=== PATIENT | male | born 1945 | race Caucasian/White ===

== ENCOUNTER → 2016-11-06 | Outpatient (CLI) | payer OTHER ==
[~2016-11-06] MED LIST: ALLOPURINOL PO; AMLO-110 PO; BACL10TA PO; CHOL2000 PO; CITA20TA4 PO; CLOB-65 TOP; FLM4 PO; LISI-725 PO; MRLP17X PO; MULT60CA PO; NRN/300 PO; PANT1TAB3 PO; PSYL55.43 PO; RANI300T2 PO
--- NOTE | 2016-11-06 14:47 | DIAGNOSTIC IMAGING REPORT ---
LEFT SECOND TOE 3 VIEWS CLINICAL HISTORY: Left second toe pain COMPARISON: None. DISCUSSION: There is a 4 mm intra-articular chip/avulsion fracture arising from the dorsal base of distal phalanx. The fracture is distracted x 2.5 mm. IMPRESSION: 4 mm intra-articular chip/avulsion fracture arising from the dorsal base of the distal phalanx. Electronically signed by: Fabián Nunez M.D. 11/06/2016 2:45 PM
== END | disposition home or self-care (01) ==
LOC: C.RAD1850 14:24
PROVIDERS: ATTEND Nurse Practitioner
DX: S92.532A Displaced fracture of distal phalanx of left lesser toe(s), initial encounter for closed fracture (principal); X58.XXXA Exposure to other specified factors, initial encounter

== ENCOUNTER → 2016-11-07 | Outpatient (CLI) | payer OTHER ==
[~2016-11-07] MED LIST changes: -PANT1TAB3 PO; +PANT1TAB48 PO
== END | disposition home or self-care (01) ==
LOC: C.LABBFT 16:23
PROVIDERS: ATTEND Urology
DX: N41.9 Inflammatory disease of prostate, unspecified (principal); Z11.59 Encounter for screening for other viral diseases

== ENCOUNTER → 2017-01-10 | Outpatient (CLI) | payer OTHER ==
[2017-01-10 12:51] LABS: ALT/SGPT 24 U/L (12-78); AST/SGOT 12 U/L (15-37); BLOOD UREA NITROGEN 21 mg/dl (7-18); BUN/CREATININE RATIO 14.1 (10-20); CALCIUM 8.3 mg/dl (8.5-10.1); CARBON DIOXIDE 27 mmol/L (21-32); CHLORIDE 105 mmol/L (98-107); GLUCOSE 125 mg/dl (70-99); POTASSIUM 4.6 mmol/L (3.5-5.1); SODIUM 139 mmol/L (136-145)
[2017-01-10 12:54] LABS: ALB/GLOB RATIO 1.3 (0.9-2); ALKALINE PHOSPHATASE 73 U/L (45-117)
[2017-01-10 12:57] LABS: ESTIMATED AVERAGE GLUCOSE 120 mg/dl; HA1C FLAG Normal (Normal)
== END | disposition home or self-care (01) ==
LOC: C.LAB1850 11:20
PROVIDERS: ATTEND Nurse Practitioner
DX: E11.9 Type 2 diabetes mellitus without complications (principal)

== ENCOUNTER → 2017-01-15 | Outpatient (CLI) | payer OTHER ==
--- NOTE | 2017-01-15 12:10 | DIAGNOSTIC IMAGING REPORT ---
RIGHT FOOT 3 VIEWS CLINICAL HISTORY: Right foot injury. FINDINGS: 3 views of the right foot are obtained. No prior studies are available for comparison at the time of dictation. The skeletal structures are osteopenic. There is a minimally distracted and comminuted spiral fracture through the midshaft of the fifth metatarsal with overlying soft tissue edema. The largest fragments are distracted by at least 4 mm. No additional fracture is identified. Moderate to advanced arthritic change with bony sclerosis and overgrowth is seen at the first metatarsophalangeal joint. The remaining joint spaces of the foot appear preserved. There is a dorsal calcaneal enthesophyte. Atherosclerotic calcification is noted in the regional arteries. IMPRESSION: 1. There is a distracted spiral fracture through the shaft of the fifth metatarsal with overlying soft tissue edema as above. 2. No additional fracture is seen. 3. Arthritic change is noted at the first metatarsophalangeal joint. Electronically signed by: Harris Mustafa M.D. 01/15/2017 12:08 PM Dictated Date/Time: 01/15/2017 12:06 PM
== END | disposition home or self-care (01) ==
LOC: C.RAD1850 11:55
PROVIDERS: ATTEND Nurse Practitioner
DX: S99.929A Unspecified injury of unspecified foot, initial encounter (principal); X58.XXXA Exposure to other specified factors, initial encounter

== ENCOUNTER → 2017-01-24 | Outpatient (CLI) | payer OTHER ==
[2017-01-24 13:09] LABS: BASO % 0.7 %; BASO ABS # 0.04 K/uL (0-0.2); COMPLETE YES; EOS % 1.7 %; HEMATOCRIT 39.7 % (42-52); IG% 0.5 %; LYMPH ABS # 1.26 K/uL (1.2-3.4); MEAN CELL VOLUME 87.6 fL (80-100); MEAN CORPUSCULAR HGB CONC 34.3 g/dl (32-36); MEAN PLATELET VOLUME 9.5 fL (7.4-10.4); MONO % 5.6 %; NEUT % 69.5 %; PLATELET COUNT 274 K/uL (130-400); RED BLOOD COUNT 4.53 M/uL (4.7-6.1); WHITE BLOOD COUNT 5.73 K/uL (4.8-10.8)
[2017-01-24 13:24] LABS: PARTIAL THROMBOPLASTIN RATIO 1.1; PROTHROMBIN TIME (PATIENT) 10.4 SECONDS (9.0-12.0)
[2017-01-24 13:46] LABS: BLOOD UREA NITROGEN 20 mg/dl (7-18); BUN/CREATININE RATIO 13.6 (10-20); CALCIUM 8.8 mg/dl (8.5-10.1); CARBON DIOXIDE 28 mmol/L (21-32); CHLORIDE 105 mmol/L (98-107); GLUCOSE 99 mg/dl (70-99); POTASSIUM 4.7 mmol/L (3.5-5.1); SODIUM 140 mmol/L (136-145)
== END | disposition home or self-care (01) ==
LOC: C.CPL 12:06
PROVIDERS: ATTEND Physician Assistant
DX: Z01.810 Encounter for preprocedural cardiovascular examination (principal); Z01.812 Encounter for preprocedural laboratory examination

== ENCOUNTER → 2017-01-24 | Outpatient (CLI) | payer OTHER | END | disposition home or self-care (01) | LOC: C.RDSM 14:37 | PROVIDERS: ATTEND Orthopaedic Surgery Sports Medicine | DX: S92.351A Displaced fracture of fifth metatarsal bone, right foot, initial encounter for closed fracture (principal); X58.XXXA Exposure to other specified factors, initial encounter; Z01.810 Encounter for preprocedural cardiovascular examination; Z01.812 Encounter for preprocedural laboratory examination ==

== ENCOUNTER → 2017-01-31 | Day surgery (SDC) | payer OTHER ==
[2017-01-29 07:39] VITALS: Ht 172.7 cm; Wt 79.5 kg
[~2017-01-31] VITALS: Ht 172.7 cm; Wt 79.5 kg
[~2017-01-31] MED LIST changes: +ATROPINE SULFATE 0.1 MG/ML 5ML SYR IV PRN; +BUPIVACAINE 0.5 % 5 MG/1 ML MPF 30ML VIAL ONE; +CEFAZOLIN 1000MG/55 ML D5W IV SCH; +EpHEDrine SULFATE INJ 50 MG/ML AMP IV PRN; +EpHEDrine SULFATE INJ 50 MG/ML AMP ONE; +FENTANYL CITRATE INJ 50 MCG/1 ML 2 ML VIAL IV PRN; +FENTANYL CITRATE INJ 50 MCG/1 ML 2 ML VIAL ONE; +FLUMAZENIL 0.1 MG/1 ML 10 ML VIAL IV PRN; +HYDROmorphone INJ 2 MG/ML SYR/VIAL IV PRN; +LABETALOL HCL IV 5 MG/ML 20ML IV PRN; +LACTATED RINGER'S 1000ML 1,000 ML IV SCH; +LIDOCAINE HCL 1% 20 ML VIAL ONE; +LIDOCAINE HCL 2% 2 ML VIAL (20MG/ML) ONE; +LIDOCAINE/EPINEPHRINE 1% INJ 50 ML VIAL ONE; +MEPERIDINE HCL 25 MG/ML CARP IV PRN; +MoRPHine SULFATE 2 MG/ML CARP IV PRN; +MoRPHine SULFATE 4 MG/ML 1 ML CARP\\VIAL IV PRN; +NALOXONE HCL 0.4 MG/1 ML VIAL/CARP IV PRN; +ONDANSETRON INJ 2 MG/ML 2 ML VIAL IV PRN; +ONDANSETRON INJ 2 MG/ML 2 ML VIAL ONE; +OXYCODONE/ACETAMINOPHEN 5-325 TAB PO PRN; +PHENYLEPHRINE 100MCG/ML 5ML SYR IV PRN; +PROPOFOL IV EMULSION 10 MG/ML 20 ML VIAL IV ONE; +SODIUM CHLORIDE 0.9% INJ 10 ML VIAL ONE
--- NOTE | 2017-01-31 06:38 | History & Physical Bridge - SC ---
H&P Re-Evaluation Bridge Note: I have examined the patient, reviewed the History & Physical and in the interval since the performance of the History & Physical I have noted the following changes of clinical significance: No changes noted
--- NOTE | 2017-01-31 08:48 | Discharge Instructions-SurgCtr ---
Discharge Instructions Date of Service Jan 31, 2017. Visit Reason for Visit: Right 5TH Metatarsal Fracture Discharge Discharge Diagnosis / Problem: Status post ORIF Right 5th Metatarsal fracture Discharge Goals Goal(s): Decrease discomfort, Improve function, Increase independence Activity Recommendations Activity Limitations: per Instructions/Follow-up section May Resume Sexual Activity: when tolerated Shower/Bathe: may shower/bathe in 3 days Driving or Machine Use: No for at least 6 weeks Weightbearing Status: Right weightbearing (as tolerated through heel in splint/ boot) Anesthesia . Post Anesthesia Instructions: If you have had General Anesthesia or IV Sedation: * Do not drive today. * Resume driving when surgeon permits. * Do not make important decisions or sign legal documents today. * Call surgeon for: 1. Temperature elevations greater than 101 degrees F. 2. Uncontrollable pain. 3. Excessive bleeding. 4. Persistent nausea and vomiting. 5. Medication intolerance (nausea, vomiting or rash). * For nausea and vomiting use only clear liquids such as: tea, soda, bouillon until nausea subsides, then gradually increase diet as tolerated. * If you have any concerns or questions, call your surgeon's office. If physician is unavailable and it is an emergency, call 911 or go to the nearest emergency room. . Instructions / Follow-Up Instructions / Follow-Up Dr. Carty in 10-15 days. PT in 3 days. Diet Recommendations Home Diet: resume previous diet Procedures Procedures Performed: Right 5th Metatarsal Open Reduction Internal Fixation Pending Studies Studies pending at discharge: no Medical Emergencies . Who to Call and When: Medical Emergencies: If at any time you feel your situation is an emergency, please call 911 immediately. . Non-Emergent Contact Non-Emergency issues call your: Surgeon Call Non-Emergent contact if: temperature is above 101.5, your pain is not controlled, wound has increased drainage, wound has increased redness . . "Provider Documentation" section prepared by Shaun Carty.
--- NOTE | 2017-01-31 08:53 | [facility] Operative Report ---
Operative Report Operative Date Jan 31, 2017. Pre-Operative Diagnosis Right 5th Metatarsel Fracture Post-Operative Diagnosis same Procedure(s) Performed Right 5th Metatarsal Open Reduction Internal Fixation Surgeon Dr Shaun Carty Engineering Program Manager Surgeon(s) Dr Cuello Estimated Blood Loss 7ml Findings Displaced right 5th Metatarsal shaft, long oblique, comminuted fracture. Fluids (cc crystalloids) 800 Specimens none Drains n/a Anesthesia LMA Complication(s) None Disposition Recovery Room / PACU (Stable) Implants 2.0 mm x 12 mm Cortical screw (Synthes, Carter head) 2.7 mm x 12 mm Cortical screw (Synthes, Small frag head) Indications The patient is a 71 year old male with a displaced right 5th metatarsal shaft fracture, that had displaced with conservative treatment and I recommended surgical fixation. The patient understands the risks of surgery, which include but are not limited to: bleeding, infection, re-operation, damage to nerves and arteries, continued pain, progression of arthritis, mal-union, non-union, failure of the hardware, DVT, and stiffness. The patient understands all of these instructions and explanations, all of their questions have been satisfactorily addressed. The patient has elected to proceed with surgery and the informed consent was signed. Description of Procedure The patient was taken to the Operating Room and placed in the supine position on the operating table. After general anesthetic was administered a multidisciplinary time-out was performed identifying my initials on the right lower extremity as the correct and operative limb. Prior to the incision being made, 1 gram of intravenous Ancef was given. The right lower extremity was prepped and draped in the usual orthopaedic sterile fashion. The planned incision over the lateral aspect of the foot over the 5th metatarsal was marked and was then injected, as well as performing blocks of the superficial peroneal nerve and sural nerve with a total of 10 cc of a 50:50 mix of 1% Lidocaine epi and 0.5% Bupivacaine plain. An Esmarch was used to exsanguinate the limb and the tourniquet was inflated to 250 mmHg. The planned incision was carried down to the extensor mechanism. The distal and proximal fragments were exposed. There was comminution along the lateral and volar aspect with several small fragments without any soft tissue attachment. The extensor tendon was protected throughout. The fragments were debrided of hematoma with dental pick, rongeur, irrigation and suction. The two main fragments were reduced and held with pointed reduction clamp. 2 lag screws were placed in the standard fashion using a 2.7 mm screw proximally and a 2.0 mm screw more distally. Fluoroscopy was brought in to ensure near anatomic reduction. The wound was copiously irrigated. The small bone fragments were broken up with the riser and placed within the distal part of the fifth metatarsal where there was bone loss. The periosteum was closed over the bone and screws with 2-0 Vicryl. The subcutaneous layer was closed with 3-0 Vicryl. The skin was closed with 4-0 Nylon using horizontal mattress stitch. The wound was dressed with Xeroform gauze, sterile gauze, ABDs, sterile Webril, and a posterior splint. The sponge and needle counts were correct. He was taken to the recovery room in stable condition. Post-op Instructions: Pain medicine prescription was given pre-operatively to be taken as needed. The patient will be weight bearing as tolerated through his heel but is not to place any weight through his forefoot. The patient will follow up with me in 10 -15 days. I attest to the content of the Intraoperative Record and any orders documented therein. Any exceptions are noted below.
--- NOTE | 2017-01-31 09:48 | Anesthesia Progress Nt - [facility] ---
Anesthesia Post Op Note Date & Time Jan 31, 2017 at 09:48 Vital Signs Pain Intensity: 0 Vital Signs Past 12 Hours Date Time Temp Pulse Resp B/P Pulse Ox O2 Delivery O2 Flow Rate FiO2 01/31/17 09:07 36.6 76 14 135/80 100 Diffusion Mask 5 01/31/17 06:38 36.8 69 16 142/94 98 Room Air Notes Mental Status: alert / awake / arousable, participated in evaluation Pt Amnestic to Procedure: Yes Nausea / Vomiting: adequately controlled Pain: adequately controlled Airway Patency, RR, SpO2: stable & adequate BP & HR: stable & adequate Hydration State: stable & adequate Anesthetic Complications: no major complications apparent
[2017-01-31 10:09] VITALS: TEMP 36.4
[2017-01-31 10:54] VITALS: BP 128/70; PULSE 69; O2SAT 97
== END | disposition home or self-care (01) ==
LOC: X.SURG 06:15
PROVIDERS: ATTEND Orthopaedic Surgery Sports Medicine
DX: S92.301A Fracture of unspecified metatarsal bone(s), right foot, initial encounter for closed fracture (principal); X58.XXXA Exposure to other specified factors, initial encounter; I10 Essential (primary) hypertension; F41.9 Anxiety disorder, unspecified; K21.9 Gastro-esophageal reflux disease without esophagitis; M17.9 Osteoarthritis of knee, unspecified; Y93.89 Activity, other specified; Y92.89 Other specified places as the place of occurrence of the external cause; Y99.8 Other external cause status; Z98.890 Other specified postprocedural states

== ENCOUNTER → 2017-02-03 | Outpatient (CLI) | payer OTHER ==
[~2017-02-03] MED LIST changes: -ATROPINE SULFATE 0.1 MG/ML 5ML SYR IV PRN; -BUPIVACAINE 0.5 % 5 MG/1 ML MPF 30ML VIAL ONE; -CEFAZOLIN 1000MG/55 ML D5W IV SCH; -EpHEDrine SULFATE INJ 50 MG/ML AMP IV PRN; -EpHEDrine SULFATE INJ 50 MG/ML AMP ONE; -FENTANYL CITRATE INJ 50 MCG/1 ML 2 ML VIAL IV PRN; -FENTANYL CITRATE INJ 50 MCG/1 ML 2 ML VIAL ONE; -FLUMAZENIL 0.1 MG/1 ML 10 ML VIAL IV PRN; -HYDROmorphone INJ 2 MG/ML SYR/VIAL IV PRN; -LABETALOL HCL IV 5 MG/ML 20ML IV PRN; -LACTATED RINGER'S 1000ML 1,000 ML IV SCH; -LIDOCAINE HCL 1% 20 ML VIAL ONE; -LIDOCAINE HCL 2% 2 ML VIAL (20MG/ML) ONE; -LIDOCAINE/EPINEPHRINE 1% INJ 50 ML VIAL ONE; -MEPERIDINE HCL 25 MG/ML CARP IV PRN; -MoRPHine SULFATE 2 MG/ML CARP IV PRN; -MoRPHine SULFATE 4 MG/ML 1 ML CARP\\VIAL IV PRN; -NALOXONE HCL 0.4 MG/1 ML VIAL/CARP IV PRN; -ONDANSETRON INJ 2 MG/ML 2 ML VIAL IV PRN; -ONDANSETRON INJ 2 MG/ML 2 ML VIAL ONE; -OXYCODONE/ACETAMINOPHEN 5-325 TAB PO PRN; -PHENYLEPHRINE 100MCG/ML 5ML SYR IV PRN; -PROPOFOL IV EMULSION 10 MG/ML 20 ML VIAL IV ONE; -SODIUM CHLORIDE 0.9% INJ 10 ML VIAL ONE
[2017-02-03 10:44] LABS: MEAN CELL VOLUME 88.7 fL (80-100); MEAN CORPUSCULAR HEMOGLOBIN 29.7 pg (25-34); MEAN CORPUSCULAR HGB CONC 33.5 g/dl (32-36); PLATELET COUNT 262 K/uL (130-400); RED BLOOD COUNT 4.51 M/uL (4.7-6.1); WHITE BLOOD COUNT 7.68 K/uL (4.8-10.8)
[2017-02-03 11:04] LABS: BLOOD UREA NITROGEN 29 mg/dl (7-18); BUN/CREATININE RATIO 18.1 (10-20); CALCIUM 9.2 mg/dl (8.5-10.1); CARBON DIOXIDE 29 mmol/L (21-32); CHLORIDE 103 mmol/L (98-107); GLUCOSE 116 mg/dl (70-99); POTASSIUM 4.5 mmol/L (3.5-5.1); SODIUM 139 mmol/L (136-145); URIC ACID 5.2 mg/dl (2.6-7.2)
[2017-02-03 11:05] LABS: PHOSPHORUS 3.2 mg/dl (2.5-4.9)
[2017-02-03 11:12] LABS: URINE APPEARANCE CLEAR (CLEAR); URINE BILIRUBIN NEG (NEG); URINE COLOR DK YELLOW; URINE EPITHELIAL CELL AUTO 0-5 /lpf (0-5); URINE NITRITE NEG (NEG); URINE SPECIFIC GRAVITY 1.022 (1.000-1.030); UROBILINOGEN NEG (NEG)
[2017-02-03 11:22] LABS: URINE PROTIEN/CREAT RATIO 0.1 (0-0.2); URINE TOTAL PROTEIN 17.3 mg/dl (0-11.9)
[2017-02-03 11:33] LABS: MANUAL MICROSCOPIC REQUIRED? NO; REVIEW REQ? NO
== END | disposition home or self-care (01) ==
LOC: C.LAB1850 09:03
PROVIDERS: ATTEND Internal Medicine Nephrology
DX: I12.9 Hypertensive chronic kidney disease with stage 1 through stage 4 chronic kidney disease, or unspecified chronic kidney disease (principal); D64.9 Anemia, unspecified; N18.3 Chronic kidney disease, stage 3 (moderate); E55.9 Vitamin D deficiency, unspecified; M10.9 Gout, unspecified

== ENCOUNTER → 2017-03-13 | Outpatient (CLI) | payer OTHER | END | disposition home or self-care (01) | LOC: C.RDSM 14:05 | PROVIDERS: ATTEND Orthopaedic Surgery Sports Medicine | DX: Z09 Encounter for follow-up examination after completed treatment for conditions other than malignant neoplasm (principal) ==

== ENCOUNTER → 2017-04-24 | Outpatient (CLI) | payer OTHER | LOC: C.RDSM 10:00 | PROVIDERS: ATTEND Orthopaedic Surgery Sports Medicine | DX: Z09 Encounter for follow-up examination after completed treatment for conditions other than malignant neoplasm (principal) ==

== ENCOUNTER → 2017-05-26 | Outpatient (CLI) | payer OTHER ==
--- NOTE | 2017-05-26 11:44 | DIAGNOSTIC IMAGING REPORT ---
LEFT ANKLE MIN 3 VIEWS ROUTINE CLINICAL HISTORY: 71 years-old Male presenting with left foot injury, left foot and ankle pain. TECHNIQUE: Frontal, oblique, and lateral views of the left ankle were obtained. COMPARISON: None. FINDINGS: Ankle mortise intact. No acute fracture or malalignment. Degenerative change at the insertion of the Achilles tendon. Atherosclerosis. Soft tissue swelling of the ankle joint most pronounced along the medial malleolus. IMPRESSION: Soft tissue swelling along the medial malleolus. No acute osseous injury of the ankle. Electronically signed by: Addy Durham M.D. 05/26/2017 11:43 AM Dictated Date/Time: 05/26/2017 11:41 AM
--- NOTE | 2017-05-26 12:04 | DIAGNOSTIC IMAGING REPORT ---
LEFT FOOT MIN 3 VIEWS ROUTINE HISTORY: 71 years-old Male [id number] acute left foot pain status post injury COMPARISON: Left ankle radiographs of same day TECHNIQUE: 3 views of the left foot FINDINGS: Mild degenerative changes are seen at the first MTP joint. Interphalangeal joint space narrowing is also seen throughout. No acute fracture or dislocation is seen. There is moderate spurring of the Achilles insertion site about the calcaneus. Vascular calcifications are noted. There is moderate soft tissue swelling about the ankle. IMPRESSION: 1. Moderate soft tissue swelling about the ankle without left foot fracture identified. 2. Degenerative changes about the foot, most pronounced in the first MTP joint. 3. Peripheral vascular disease. The above report was generated using voice recognition software. It may contain grammatical, syntax or spelling errors. Electronically signed by: Navjot Burrell M.D. 05/26/2017 12:03 PM Dictated Date/Time: 05/26/2017 12:01 PM
== END | disposition home or self-care (01) ==
LOC: C.RAD1850 10:57
PROVIDERS: ATTEND Nurse Practitioner
DX: S99.929A Unspecified injury of unspecified foot, initial encounter (principal); X58.XXXA Exposure to other specified factors, initial encounter

== ENCOUNTER → 2017-06-04 | Outpatient (CLI) | payer OTHER ==
--- NOTE | 2017-06-04 09:39 | DIAGNOSTIC IMAGING REPORT ---
CT SCAN OF THE BRAIN WITHOUT IV CONTRAST CLINICAL HISTORY: Unsteady gait. COMPARISON STUDY: No priors. TECHNIQUE: Unenhanced axial CT scan of the brain is performed from the vertex to the skull base. CT DOSE: 788.63 mGycm FINDINGS: Brain parenchyma: There are age-related involutional changes noting mild subcortical and periventricular microangiopathic change. There is no hemorrhage, mass effect, or evidence of acute territorial ischemia by CT criteria. Ann-white matter is preserved. No extra-axial fluid collection is seen. Ventricles, sulci, cisterns: Prominent secondary to involutional change. Intracranial vasculature: There is atherosclerotic calcification of the cavernous carotid and vertebral arteries. Calvarium: Unremarkable. Sinuses and mastoids: The visualized paranasal sinuses are clear. There is a small left mastoid effusion. The right mastoid air cells are well pneumatized. Orbits: The bony orbits are grossly intact. There are bilateral ocular lens implants. IMPRESSION: There is no hemorrhage, mass effect, or evidence of acute territorial ischemia by CT criteria. Electronically signed by: Harris Mustafa M.D. 06/04/2017 9:37 AM Dictated Date/Time: 06/04/2017 9:35 AM
== END | disposition home or self-care (01) ==
LOC: C.CTS 09:23
PROVIDERS: ATTEND Nurse Practitioner
DX: R26.81 Unsteadiness on feet (principal)

== ENCOUNTER → 2017-06-09 | Outpatient (CLI) | payer OTHER ==
[~2017-06-09] MED LIST changes: -NRN/300 PO
--- NOTE | 2017-06-09 14:49 | DIAGNOSTIC IMAGING REPORT ---
LEFT ANKLE 3 VIEWS HISTORY: Left ankle pain. COMPARISON: Left ankle 05/26/2017. FINDINGS: Diffuse soft tissue swelling is again noted. There is a nondisplaced oblique fracture within the distal fibula. The distal tibia appears intact. No dislocation. Soft tissues are unremarkable. No radiopaque foreign bodies. IMPRESSION: Nondisplaced oblique fracture within the distal left fibula. Electronically signed by: Jordan Deras M.D. 06/09/2017 2:48 PM Dictated Date/Time: 06/09/2017 2:46 PM
== END | disposition home or self-care (01) ==
LOC: C.RAD1850 14:35
PROVIDERS: ATTEND Nurse Practitioner
DX: S99.929A Unspecified injury of unspecified foot, initial encounter (principal); X58.XXXA Exposure to other specified factors, initial encounter

== ENCOUNTER → 2017-06-11 | Outpatient (CLI) | payer OTHER | END | disposition home or self-care (01) | LOC: C.RDSM 15:20 | PROVIDERS: ATTEND Orthopaedic Surgery Sports Medicine | DX: S82.865A Nondisplaced Maisonneuve's fracture of left leg, initial encounter for closed fracture (principal); X58.XXXA Exposure to other specified factors, initial encounter ==

== ENCOUNTER → 2017-06-18 | Outpatient (CLI) | payer OTHER ==
--- NOTE | 2017-06-18 16:46 | DIAGNOSTIC IMAGING REPORT ---
ORBITS FOR MRI HISTORY: Pre-MRI pre-MRI screening. COMPARISON: None. FINDINGS: There are no radiopaque foreign bodies identified within the orbits. IMPRESSION: No radiopaque foreign bodies identified within the orbits. The above report was generated using voice recognition software. It may contain grammatical, syntax or spelling errors. Electronically signed by: Adi Bishop M.D. 06/18/2017 4:45 PM Dictated Date/Time: 06/18/2017 4:44 PM
--- NOTE | 2017-06-18 17:32 | DIAGNOSTIC IMAGING REPORT ---
CERVICAL WITHOUT CONTRAST HISTORY: Pain NECK PAIN TECHNIQUE: Multiplanar multisequence MRI of the cervical spine was performed without the use of contrast. COMPARISON STUDY: None. FINDINGS: Moderate degenerative disc change throughout the entire cervical region. No bone marrow infiltrative process. Mild cervical scoliosis possibly positional and/or related to muscular spasm. C2-C3: No significant central canal or neural foraminal narrowing. C3-C4: Mild osteophytic narrowing right neuroforamina. C4-C5: Moderate osteophytic narrowing of the neuroforamina bilaterally C5-C6: Mild osteophytic narrowing right neuroforamina. C6-C7: Mild broad-based disc bulge. No significant impact with cervical cord. Moderate narrowing right neuroforamina C7-T1: Moderate osteophytic narrowing of the neuroforamina bilaterally. No compromise of the cervical cord. IMPRESSION: 1. Moderate multilevel degenerative disc change. 2. Slight multilevel disc bulges with no significant impact upon the cervical cord. 3. Moderate multilevel osteophytic narrowing of the neuroforamina as described The above report was generated using voice recognition software. It may contain grammatical, syntax or spelling errors. Electronically signed by: Adi Bishop M.D. 06/18/2017 5:30 PM Dictated Date/Time: 06/18/2017 5:27 PM
== END | disposition home or self-care (01) ==
LOC: C.MRIBC 16:30
PROVIDERS: ATTEND Physician Assistant Medical
DX: M54.12 Radiculopathy, cervical region (principal); Z13.5 Encounter for screening for eye and ear disorders

== ENCOUNTER → 2017-06-26 | Outpatient (CLI) | payer OTHER | END | disposition home or self-care (01) | LOC: C.RDSM 15:25 | PROVIDERS: ATTEND Orthopaedic Surgery Sports Medicine | DX: Z09 Encounter for follow-up examination after completed treatment for conditions other than malignant neoplasm (principal); S82.865A Nondisplaced Maisonneuve's fracture of left leg, initial encounter for closed fracture; X58.XXXA Exposure to other specified factors, initial encounter ==

== ENCOUNTER → 2017-07-10 | Outpatient (CLI) | payer OTHER | END | disposition home or self-care (01) | LOC: C.MAMM 08:53 | PROVIDERS: ATTEND Nurse Practitioner | DX: S82.436A Nondisplaced oblique fracture of shaft of unspecified fibula, initial encounter for closed fracture (principal); X58.XXXA Exposure to other specified factors, initial encounter; M85.851 Other specified disorders of bone density and structure, right thigh; M85.852 Other specified disorders of bone density and structure, left thigh ==

== ENCOUNTER → 2017-07-21 | Outpatient (CLI) | payer OTHER ==
[2017-07-21 12:10] LABS: HEMATOCRIT 39.6 % (42-52); MEAN CELL VOLUME 87.8 fL (80-100); MEAN CORPUSCULAR HEMOGLOBIN 29.9 pg (25-34); MEAN CORPUSCULAR HGB CONC 34.1 g/dl (32-36); MEAN PLATELET VOLUME 10.1 fL (7.4-10.4); PLATELET COUNT 268 K/uL (130-400); RED BLOOD COUNT 4.51 M/uL (4.7-6.1); WHITE BLOOD COUNT 5.04 K/uL (4.8-10.8)
[2017-07-21 12:28] LABS: URINE APPEARANCE CLEAR (CLEAR); URINE BILIRUBIN NEG (NEG); URINE COLOR YELLOW; URINE EPITHELIAL CELL AUTO 0-5 /lpf (0-5); URINE NITRITE NEG (NEG); URINE SPECIFIC GRAVITY 1.016 (1.000-1.030); UROBILINOGEN NEG (NEG)
[2017-07-21 12:32] LABS: MANUAL MICROSCOPIC REQUIRED? NO; REVIEW REQ? NO
[2017-07-21 12:36] LABS: ESTIMATED AVERAGE GLUCOSE 120 mg/dl; HA1C FLAG Normal (Normal)
[2017-07-21 12:45] LABS: ALT/SGPT 23 U/L (12-78); BLOOD UREA NITROGEN 17 mg/dl (7-18); BUN/CREATININE RATIO 10.7 (10-20); CALCIUM 9.1 mg/dl (8.5-10.1); CARBON DIOXIDE 25 mmol/L (21-32); CHLORIDE 104 mmol/L (98-107); CHOLESTEROL 200 mg/dl (0-200); GLUCOSE 114 mg/dl (70-99); POTASSIUM 4.2 mmol/L (3.5-5.1); SODIUM 138 mmol/L (136-145); TRIGLYCERIDES 180 mg/dl (0-150); URIC ACID 6.6 mg/dl (2.6-7.2); VERY LOW DENSITY LIPOPROT CALC 36 mg/dl
[2017-07-21 12:48] LABS: ALB/GLOB RATIO 1.2 (0.9-2); ALKALINE PHOSPHATASE 95 U/L (45-117); AST/SGOT 15 U/L (15-37); CHOLESTEROL/HDL RATIO 4.7; HDL CHOLESTEROL 43 mg/dl; LDL CHOLESTEROL CALCULATED 121 mg/dl
[2017-07-21 12:59] LABS: URINE PROTIEN/CREAT RATIO 0.1 (0-0.2); URINE TOTAL PROTEIN 12.1 mg/dl (0-11.9)
== END | disposition home or self-care (01) ==
LOC: C.LABBFT 09:30
PROVIDERS: ATTEND Nurse Practitioner
DX: E11.29 Type 2 diabetes mellitus with other diabetic kidney complication (principal); E78.5 Hyperlipidemia, unspecified; M10.9 Gout, unspecified; I10 Essential (primary) hypertension; D64.9 Anemia, unspecified; N18.3 Chronic kidney disease, stage 3 (moderate); E55.9 Vitamin D deficiency, unspecified

== ENCOUNTER → 2017-08-06 | Outpatient (CLI) | payer OTHER | END | disposition home or self-care (01) | LOC: C.RDSM 10:59 | PROVIDERS: ATTEND Orthopaedic Surgery Sports Medicine | DX: Z09 Encounter for follow-up examination after completed treatment for conditions other than malignant neoplasm (principal) ==

== ENCOUNTER → 2017-10-08 | Outpatient (CLI) | payer OTHER ==
[~2017-10-08] MED LIST changes: -CLOB-65 TOP
== END | disposition home or self-care (01) ==
LOC: C.RDSM 10-07 09:46
PROVIDERS: ATTEND Orthopaedic Surgery Sports Medicine
DX: Z09 Encounter for follow-up examination after completed treatment for conditions other than malignant neoplasm (principal); M25.572 Pain in left ankle and joints of left foot

== ENCOUNTER → 2017-10-16 | Outpatient (CLI) | payer OTHER ==
[~2017-10-16] MED LIST changes: +PANT1TAB3 PO; -PANT1TAB48 PO
--- NOTE | 2017-10-16 12:45 | DIAGNOSTIC IMAGING REPORT ---
CT SCAN OF THE PARANASAL SINUSES CLINICAL HISTORY: Disturbance in sense of smell. COMPARISON STUDY: CT of the brain dated 06/04/2017. TECHNIQUE: High-resolution CT scan of the paranasal sinuses is performed. Images are reviewed in the axial, sagittal, and coronal planes. IV contrast was not administered for this examination. The examination is performed using the fusion protocol. A dose lowering technique was utilized adhering to the principles of ALARA. CT DOSE: 595.75 mGy.cm FINDINGS: Maxillary antra: Clear bilaterally. Anterior ethmoid sinuses: Trace mucosal thickening seen bilaterally. Posterior ethmoid sinuses: Clear. Sphenoid sinuses: Clear. Frontal sinuses: Trace mucosal thickening is seen bilaterally. A 6 cm osteoma is suggested in the right frontal sinus on image #351. Ostiomeatal complexes: Patent bilaterally. Frontoethmoidal and sphenoethmoidal recesses: Patent bilaterally. Carotid arteries: The carotid arteries are protuberant but covered. A septal attachment is seen on the right. Ethmoid roofs: The ethmoid roofs are symmetric. Nasal turbinates: Normal in appearance. Nasal septum: There is minimal leftward deviation of the bony nasal septum. Optic nerves: Covered. Orbits: The bony orbits are intact. Orbital contents are normal in appearance noting bilateral ocular lens implants. Calvarium: The skeletal structures are osteopenic. The imaged calvarium is normal in appearance. The patient is edentulous. Mastoid air cells: There is a moderate left mastoid effusion. The right mastoid air cells are well pneumatized. Brain parenchyma: Partially visualized brain parenchyma is within normal limits noting age-related involutional change. IMPRESSION: 1. No significant paranasal sinus disease is identified. See above. 2. Left mastoid effusion. Electronically signed by: Harris Mustafa M.D. 10/16/2017 12:43 PM Dictated Date/Time: 10/16/2017 12:39 PM
== END | disposition home or self-care (01) ==
LOC: C.CTS 12:29
PROVIDERS: ATTEND Physician Assistant
DX: R43.9 Unspecified disturbances of smell and taste (principal); H74.8X2 Other specified disorders of left middle ear and mastoid

== ENCOUNTER → 2017-12-03 | Outpatient (CLI) | payer BC | END | disposition home or self-care (01) | LOC: C.LAB1850 16:14 | PROVIDERS: ATTEND Urology | DX: N40.1 Benign prostatic hyperplasia with lower urinary tract symptoms (principal) ==

== ENCOUNTER → 2018-01-26 | Outpatient (CLI) | payer BC ==
[~2018-01-26] MED LIST changes: +ALL100 PO; -ALLOPURINOL PO
[2018-01-26 13:44] LABS: ALBUMIN 3.9 gm/dl (3.4-5.0); ALT/SGPT 25 U/L (12-78); AST/SGOT 14 U/L (15-37); BLOOD UREA NITROGEN 20 mg/dl (7-18); CALCIUM 8.7 mg/dl (8.5-10.1); CARBON DIOXIDE 27 mmol/L (21-32); GLUCOSE 121 mg/dl (70-99); POTASSIUM 4.5 mmol/L (3.5-5.1); SODIUM 137 mmol/L (136-145)
[2018-01-26 13:46] LABS: ALKALINE PHOSPHATASE 98 U/L (45-117); CHOLESTEROL 196 mg/dl (0-200); LDL CHOLESTEROL CALCULATED 119 mg/dl; TOTAL PROTEIN 7.5 gm/dl (6.4-8.2)
[2018-01-26 14:04] LABS: HEMOGLOBIN A1C 6.1 % (4.5-5.6)
== END | disposition home or self-care (01) ==
LOC: C.LABBFT 09:39
PROVIDERS: ATTEND Nurse Practitioner
DX: E78.5 Hyperlipidemia, unspecified (principal); E11.29 Type 2 diabetes mellitus with other diabetic kidney complication

== ENCOUNTER → 2018-02-09 | Outpatient (CLI) | payer BC ==
[2018-02-09 16:51] LABS: HEMOGLOBIN 13.1 g/dL (14.0-18.0); MEAN CELL VOLUME 87.2 fL (80-100); MEAN CORPUSCULAR HEMOGLOBIN 29.3 pg (25-34); MEAN CORPUSCULAR HGB CONC 33.6 g/dl (32-36); MEAN PLATELET VOLUME 10.1 fL (7.4-10.4); PLATELET COUNT 266 K/uL (130-400); RED CELL DISTRIBUTION WIDTH CV 14.2 % (11.5-14.5); RED CELL DISTRIBUTION WIDTH SD 45.5 fL (36.4-46.3)
[2018-02-09 16:55] LABS: ALBUMIN 3.8 gm/dl (3.4-5.0); BLOOD UREA NITROGEN 18 mg/dl (7-18); CALCIUM 8.6 mg/dl (8.5-10.1); CARBON DIOXIDE 25 mmol/L (21-32); CREATININE 1.57 mg/dl (0.60-1.40); GLUCOSE 110 mg/dl (70-99); POTASSIUM 4.3 mmol/L (3.5-5.1); SODIUM 136 mmol/L (136-145); URIC ACID 5.5 mg/dl (2.6-7.2)
[2018-02-09 16:56] LABS: PHOSPHORUS 3.4 mg/dl (2.5-4.9)
== END | disposition home or self-care (01) ==
LOC: C.LAB1850 15:21
PROVIDERS: ATTEND Internal Medicine Nephrology
DX: I12.9 Hypertensive chronic kidney disease with stage 1 through stage 4 chronic kidney disease, or unspecified chronic kidney disease (principal); D64.9 Anemia, unspecified; N18.3 Chronic kidney disease, stage 3 (moderate); E55.9 Vitamin D deficiency, unspecified; M10.9 Gout, unspecified

== ENCOUNTER → 2018-03-26 | Outpatient (CLI) | payer BC ==
[2018-03-26 17:40] LABS: BASO % 0.3 %; BASO ABS # 0.02 K/uL (0-0.2); EOS % 2.2 %; EOS ABS # 0.14 K/uL (0-0.5); HEMATOCRIT 34.9 % (42-52); HEMOGLOBIN 11.6 g/dL (14.0-18.0); IG# 0.01 K/uL (0.00-0.02); LYMPH ABS # 0.89 K/uL (1.2-3.4); MEAN CELL VOLUME 89.3 fL (80-100); MEAN CORPUSCULAR HEMOGLOBIN 29.7 pg (25-34); MONO % 6.5 %; MONO ABS # 0.41 K/uL (0.11-0.59); NEUT % 76.8 %; NEUT ABS # 4.87 K/uL (1.4-6.5); PLATELET COUNT 203 K/uL (130-400); RED CELL DISTRIBUTION WIDTH CV 14.3 % (11.5-14.5); RED CELL DISTRIBUTION WIDTH SD 46.9 fL (36.4-46.3); WHITE BLOOD COUNT 6.34 K/uL (4.8-10.8)
[2018-03-26 17:43] LABS: MEAN CORPUSCULAR HGB CONC 33.2 g/dl (32-36)
[2018-03-26 18:02] LABS: BLOOD UREA NITROGEN 31 mg/dl (7-18); CALCIUM 8.4 mg/dl (8.5-10.1); CARBON DIOXIDE 24 mmol/L (21-32); CREATININE 1.74 mg/dl (0.60-1.40); GLUCOSE 156 mg/dl (70-99); POTASSIUM 4.5 mmol/L (3.5-5.1); SODIUM 139 mmol/L (136-145)
--- NOTE | 2018-03-26 19:02 | DIAGNOSTIC IMAGING REPORT ---
CT SCAN OF THE ABDOMEN AND PELVIS WITHOUT IV CONTRAST CLINICAL HISTORY: Left lower quadrant abdominal pain. COMPARISON STUDY: Abdominal CT dated 06/14/2011. TECHNIQUE: CT scan of the abdomen and pelvis is performed from the lung bases to the proximal femora. Images are reviewed in the axial, sagittal, and coronal planes. IV contrast was not administered for this examination as per the referring clinician. Note that the examination is suboptimal without IV contrast. Oral contrast was utilized. A dose lowering technique was utilized adhering to the principles of ALARA. CT DOSE: 500.57 mGy.cm FINDINGS: Lung bases: The heart is normal in size and without pericardial effusion. The lung bases are clear. Liver: The unenhanced liver is normal in size, contour, and attenuation. There is no intrahepatic biliary ductal dilatation. Gallbladder: Unremarkable. Spleen: Normal in size and attenuation. Pancreas: The unenhanced pancreas is atrophic and grossly unremarkable. Adrenal glands: Unremarkable. Kidneys: The unenhanced kidneys are atrophic and without hydronephrosis. There are no renal calculi identified. There is no evidence of contour deforming renal mass lesion. Abdominal vasculature: The abdominal aorta is normal in course and caliber noting mild atherosclerotic calcification. Bowel: There is moderate colonic diverticulosis. There is mild wall thickening and pericolonic inflammation seen involving the proximal sigmoid colon consistent with acute diverticulitis. There is no evidence of abscess. There may also be a small focus of acute diverticulitis involving the proximal descending colon seen on image #186. No bowel obstruction is seen. The appendix is well-visualized and normal. Peritoneum: There is no intraperitoneal free air or abdominal ascites. There is a small fat-containing umbilical hernia. Lymphadenopathy: None. Pelvic viscera: The bladder, prostate, and seminal vesicles are normal as imaged. Skeletal structures: The skeletal structures are osteopenic. There is moderate lumbosacral spondylosis as well as scoliosis. No lytic or blastic lesions are seen. IMPRESSION: 1. There is moderate colonic diverticulosis with evidence of mild acute diverticulitis involving the proximal sigmoid. 2. There may be a second tiny focus of acute diverticulitis involving the proximal descending colon. 3. No intraperitoneal free air or abscess is seen. Electronically signed by: Harris Mustafa M.D. 03/26/2018 7:01 PM Dictated Date/Time: 03/26/2018 6:56 PM
== END | disposition home or self-care (01) ==
LOC: C.CTS 16:33
PROVIDERS: ATTEND Nurse Practitioner
DX: R10.32 Left lower quadrant pain (principal); K57.90 Diverticulosis of intestine, part unspecified, without perforation or abscess without bleeding

== ENCOUNTER 2019-08-06 08:11 | Inpatient (IN) ==
--- NOTE | 2019-07-02 13:35 | PAT Medication Instructions ---
Medication Instructions Date of Service July 02, 2019 Home Medications Medication Instructions Recorded omeprazole 20 mg capsule,delayed 20 mg PO DAILY #90 cap 07/01/19 release allopurinol 100 mg PO QAM baclofen 10 mg PO BID cholecalciferol (vitamin D3) [Vitamin D3] 2,000 unit PO HS polyethylene glycol 3350 [Miralax] 17 g PO HS ranitidine HCl [Zantac] 300 mg PO HS tamsulosin 0.4 mg PO QPM fluocinonide 0.05 % topical cream 1 applic TOPICAL DAILY PRN ketoconazole 2 % shampoo 1 applic TOPICAL DAILY PRN triamcinolone acetonide 0.1 % lotion 1 applic TOPICAL DAILY PRN amlodipine 5 mg tablet 5 mg PO QAM cetirizine 10 mg tablet 10 mg PO QPM citalopram 20 mg tablet 20 mg PO QPM lisinopril 20 mg tablet 20 mg PO QAM omega-3 fatty acids 1 ea PO BID cranberry conc-ascorbic acid 1 cap PO QAM ropinirole 1 - 4 mg PO DAILY PRN trazodone 50 - 100 mg PO HS omeprazole 20 mg capsule,delayed release 20 mg PO DAILY STOP taking 2 weeks before surgery (or as soon as possible if surgery is within 2 weeks) omega-3 fatty acids 1 ea PO BID cranberry conc-ascorbic acid 1 cap PO QAM STOP taking 24 hours before surgery fluocinonide 0.05 % topical cream 1 applic TOPICAL DAILY PRN ketoconazole 2 % shampoo 1 applic TOPICAL DAILY PRN triamcinolone acetonide 0.1 % lotion 1 applic TOPICAL DAILY PRN ropinirole 1 - 4 mg PO DAILY PRN DO NOT take the morning of surgery baclofen 10 mg PO BID lisinopril 20 mg tablet 20 mg PO QAM Take morning of surgery With a small sip of water, OTHERWISE NOTHING TO EAT OR DRINK AFTER MIDNIGHT: allopurinol 100 mg PO QAM amlodipine 5 mg tablet 5 mg PO QAM omeprazole 20 mg capsule,delayed release 20 mg PO DAILY Take evening before surgery baclofen 10 mg PO BID cholecalciferol (vitamin D3) [Vitamin D3] 2,000 unit PO HS polyethylene glycol 3350 [Miralax] 17 g PO HS ranitidine HCl [Zantac] 300 mg PO HS tamsulosin 0.4 mg PO QPM cetirizine 10 mg tablet 10 mg PO QPM citalopram 20 mg tablet 20 mg PO QPM trazodone 50 - 100 mg PO HS Other Notes If you have any questions please call us at [phone] or [phone] or [phone] or [phone]
--- NOTE | 2019-07-06 10:54 | Anesthesiology Consultation ---
Date of Service July 06, 2019 Assessment & Plan (1) Encounter for pre-operative examination: - Check BSG AM DOS Chart Review Chart Review: Acceptable Risk for Surgery (pending preop testing (labs, EKG)) and Patient seen in Pre Admission Testing Teaching & Discussion Pre-Anesthesia Teaching/Discussion Notes: Instructed NPO after midnight before surgery,except medications with 15 cc of water. Medication instructions provided according to the PAT guidelines. History Surgery Operation Date: 08/06/19 07:00 Proposed Procedures p Left Total Knee Arthroplasty - Colt Marina DO Height/Weight Height: 5 ft 8 in Weight: 74.8 kg Allergies Allergy/AdvReac Type Severity Reaction Status Date / Time No Known Drug Allergies Allergy Unknown . Verified 06/29/19 10:48 Medications Home Medications Medication Instructions Recorded Confirmed Last Taken allopurinol 100 mg PO QAM 08/11/18 06/29/19 12/16/18 20:30 baclofen 10 mg PO BID 08/11/18 06/29/19 12/16/18 20:30 cholecalciferol (vitamin D3) 2,000 unit PO HS 08/11/18 06/29/19 12/16/18 20:30 [Vitamin D3] polyethylene glycol 3350 [Miralax] 17 g PO HS 08/11/18 06/29/19 12/16/18 20:30 ranitidine HCl [Zantac] 300 mg PO HS 08/11/18 06/29/19 12/16/18 20:30 tamsulosin 0.4 mg PO QPM 08/11/18 06/29/19 08/12/18 fluocinonide 0.05 % topical cream 1 applic TOPICAL DAILY PRN gm 05/27/19 06/29/19 Unknown ketoconazole 2 % shampoo 1 applic TOPICAL DAILY PRN ml 05/27/19 06/29/19 Unknown triamcinolone acetonide 0.1 % 1 applic TOPICAL DAILY PRN #1 ml 05/27/19 06/29/19 Unknown lotion amlodipine 5 mg tablet 5 mg PO QAM #90 tab 06/08/19 06/29/19 Unknown cetirizine 10 mg tablet 10 mg PO QPM tab 06/08/19 06/29/19 Unknown citalopram 20 mg tablet 20 mg PO QPM tab 06/08/19 06/29/19 Unknown lisinopril 20 mg tablet 20 mg PO QAM #30 tab 06/08/19 06/29/19 Unknown omega-3 fatty acids 1 ea PO BID 06/08/19 06/29/19 Unknown cranberry conc-ascorbic acid 1 cap PO QAM 06/29/19 06/29/19 Unknown ropinirole 1 - 4 mg PO DAILY PRN 06/29/19 06/29/19 Unknown trazodone 50 - 100 mg PO HS 06/29/19 06/29/19 Unknown omeprazole 20 mg capsule,delayed 20 mg PO DAILY #90 cap 07/01/19 Unknown release Past Medical History Medical History Hypertension Restless leg syndrome Chronic back pain Osteoarthritis Degenerative disc disease BPH (benign prostatic hyperplasia) GERD (gastroesophageal reflux disease) controlled Diverticulitis hx Depression Gout Hearing deficit Hx of diabetes mellitus per patient, hx elevated glucose in setting of steroids now diet controlled Macular degeneration of both eyes Exercise / Class Metabolic Activity II 4-5 Yardwork/Stairs/Walk up hill Past Surgical History Surgical History History of arthroscopy of left shoulder History of colonoscopy History of carpal tunnel release BILATERAL History of surgery RT FOOT FRACTURE, S/P REPAIR History of surgery HX OF LEFT ANKLE FRACTURE History of cataract extraction with lens replacement History of repair of rotator cuff RIGHT, DISTAL CLAVICLE EXCISION History of arthroscopic knee surgery Left knee arthroscopy: 12[place]17/18[place] [facility] [place] Anesthesia History No Hx of Anesthesia Complications and No Family Hx of Anesthesia Complications History of PONV No Hx of PONV and No Hx of Motion Sickness Social History Smoking Status: Former smoker tobacco type: cigarettes Do You Dip or Chew Tobacco: No (Quit 25+ years ago) Smoking End Date: Quit 25+ years ago; hx 1 PDD x 30 years Hx Alcohol Use: No Hx Substance Use: No substance use type: does not use Review of Systems Reflux controlled. Patient denies chest pain, shortness of breath, dyspnea on exertion, cough, wheezing, palpitations. Physical Exam Vital Signs VITALS BP 133/71 P 52 TEMP 97.9 SP02 98%RA RESP 18 PHYSICAL Full neck and c-spine range of motion. Full TMJ range of motion. TMD 3 finger breaths Mallampati Score 3 Dentition: full dentures upper/lower; edentulous Lungs: clear throughout to auscultation Cardiac: regular rate and rhythm, no murmurs noted Spine: normal Carotid arteries: negative bruit Extremities: no edema Testing Chest X-Ray Date: 06/11/19 No acute cardiopulmonary disease. Cervical Spine Date: 04/13/19 No acute fracture identified. Multilevel degenerative changes as above. Grade 1 anterolisthesis C5 on C6 and C7 on T1, likely secondary to long-standing facet arthropathy.
[2019-07-06 12:06] LABS: Basophils # (auto) 0.02 K/uL (0-0.2); Basophils % (auto) 0.4 %; Eosinophils # (auto) 0.22 K/uL (0-0.5); Eosinophils % (auto) 4.5 %; Hematocrit (blood only) 34.8 % (42-52); Hemoglobin 11.4 g/dL (14.0-18.0); Immature Granulocytes # (auto) 0.01 K/uL (0.00-0.02); Immature Granulocytes % (auto) 0.2 %; Lymphocytes # (auto) 1.07 K/uL (1.2-3.4); Lymphocytes % (auto) 21.9 %; Mean Corpuscular Hemoglobin 29.5 pg (25-34); Mean Corpuscular Hgb Conc 32.8 g/dL (32-36); Mean Corpuscular Volume 90.2 fL (80-100); Mean Platelet Volume 10.5 fL (7.4-10.4); Monocytes # (auto) 0.41 K/uL (0.11-0.59); Monocytes % (auto) 8.4 %; Neutrophils # (auto) 3.16 K/uL (1.4-6.5); Neutrophils % (auto) 64.6 %; Platelet Count 218 K/uL (130-400); RDW Coefficient of Variation 14.3 % (11.5-14.5); RDW Standard Deviation 47.1 fL (36.4-46.3); Red Blood Count 3.86 M/uL (4.7-6.1); White Blood Count 4.89 K/uL (4.8-10.8)
[2019-07-06 12:19] LABS: Partial Thromboplastin Time 27.1 Seconds (21.0-31.0); Prothrombin Time 10.3 Seconds (9.0-12.0)
[2019-07-06 12:27] LABS: Estimated Average Glucose 120 mg/dl; Hemoglobin A1C 5.8 % (4.5-5.6)
[2019-07-06 12:34] LABS: BUN Creatinine Ratio 20.3 (10-20); Calcium 8.7 mg/dl (8.5-10.1); Creatinine Clr Calc Pharmacy 40.8 ml/min; Est GFR (African American) 50.3; Est GFR (Non-African American) 43.4; Potassium 4.8 mmol/L (3.5-5.1)
--- NOTE | 2019-08-06 06:30 | History & Physical Report ---
Date of Service August 06, 2019 Assessment & Plan (1) Osteoarthritis of left knee: We will proceed with a left total knee arthroplasty. Postoperatively he will be started on aspirin for DVT prophylaxis. He will be kept overnight in the hospital for postoperative medical management. He plans to use Sooqini upon discharge. Present on Admission?: Yes History of Present Illness Chief Complaint: Primary osteoarthritis of the left knee Primary Care Provider: ISRAEL Ramirez Calvin is a pleasant 73-year-old male who was about 6 months out from a left knee arthroscopy. He had grade 4 arthritic changes in the medial compartment upon inspection during surgery. His symptoms have not improved. He has a lot of pain on the medial side of his knee. It is affecting his daily activities. He would like to proceed with a left total knee arthroplasty. Allergies Allergy/AdvReac Type Severity Reaction Status Date / Time No Known Drug Allergies Allergy Unknown . Verified 07/27/19 10:32 Home Medications Home Medications Medication Instructions Recorded Confirmed Type allopurinol 100 mg PO QAM 08/11/18 07/27/19 History baclofen 10 mg PO BID 08/11/18 07/27/19 History cholecalciferol (vitamin D3) 2,000 unit PO HS 08/11/18 07/27/19 History [Vitamin D3] polyethylene glycol 3350 [Miralax] 17 g PO HS 08/11/18 07/27/19 History ranitidine HCl [Zantac] 300 mg PO HS 08/11/18 07/27/19 History tamsulosin 0.4 mg PO QPM 08/11/18 07/27/19 History fluocinonide 0.05 % topical cream 1 applic TOPICAL DAILY PRN gm 05/27/19 07/27/19 History ketoconazole 2 % shampoo 1 applic TOPICAL DAILY PRN ml 05/27/19 07/27/19 History triamcinolone acetonide 0.1 % 1 applic TOPICAL DAILY PRN #1 ml 05/27/19 07/27/19 History lotion cetirizine 10 mg tablet 10 mg PO QPM tab 06/08/19 07/27/19 History lisinopril 20 mg tablet 20 mg PO QAM #30 tab 06/08/19 07/27/19 History omega-3 fatty acids 1 ea PO BID 06/08/19 07/27/19 History amlodipine 5 mg tablet 5 mg PO QAM #90 tab 07/27/19 07/27/19 Rx citalopram 20 mg tablet 20 mg PO QPM #90 tab 07/27/19 07/27/19 Rx ropinirole 1 mg tablet 1 - 4 mg PO DAILY PRN #120 tab 07/27/19 07/27/19 Rx trazodone 50 mg tablet 50 - 100 mg PO HS #60 tab 07/27/19 07/27/19 Rx Past Med/Surg History Medical History Hypertension Restless leg syndrome Chronic back pain Osteoarthritis Degenerative disc disease BPH (benign prostatic hyperplasia) GERD (gastroesophageal reflux disease) controlled Diverticulitis hx Depression Gout Hearing deficit Hx of diabetes mellitus per patient, hx elevated glucose in setting of steroids now diet controlled Macular degeneration of both eyes Surgical History History of arthroscopy of left shoulder History of colonoscopy History of carpal tunnel release BILATERAL History of surgery RT FOOT FRACTURE, S/P REPAIR History of surgery HX OF LEFT ANKLE FRACTURE History of cataract extraction with lens replacement History of repair of rotator cuff RIGHT, DISTAL CLAVICLE EXCISION History of arthroscopic knee surgery Left knee arthroscopy: 12/17/18: LMA#4 at [facility] [place] Social History Preferred Language: Faroese Communication Ability: Effective Visual Impairment: Limited Hearing Ability: Use of Hearing Aid [employer] Required: No Beliefs That Will Affect Care: None marital status: Current Living Situation: Spouse current occupational status: retired Feels Safe at Home: Yes Smoking Status: Never smoker Tobacco Type: cigarettes ; Second Hand Exposure: No ; Hx Alcohol Use: No Hx Substance Use: No caffeine: No Seatbelt Use: always Review of Systems All systems reviewed & are unremarkable except as noted in HPI & below Physical Exam Constitutional: WD/WN, vitals as above Eyes: PERRL, conjunctivae normal, anicteric sclerae ENMT: external ear and nose normal, oropharynx normal Neck: trachea midline, no thyromegaly Respiratory: normal respiratory effort Cardiovascular: RRR, no murmur, no edema Gastrointestinal (Abdomen): normal bowel sounds, soft, nontender, no hepatosplenomegaly Musculoskeletal: On physical examination of the left knee there is a trace effusion. There is near full range of motion and no evidence of instability. There is significant tenderness palpation along the medial and lateral joint lines and over the distal femoral condyles. Psychiatric: A+Ox3, euthymic affect Results & Data Diagnostic Findings Radiographs of the left knee demonstrate mild arthritis of the left knee. Intraoperative arthroscopic images do show advanced osteoarthritis and complete cartilage loss off the distal medial femoral condyle.
[~2019-08-06 08:11] MED LIST changes: +ACETAMINOPHEN 500 MG TAB PO SCH; -ALL100 PO; -AMLO-110 PO; -BACL10TA PO; +BUPIVACAINE 0.5 % 5 MG/1 ML PF 10ML VIAL ONE; +CEFAZOLIN 1000MG 1,000 MG/7.5 ML SYR IV SCH; -CHOL2000 PO; -CITA20TA4 PO; +EPINEPHrine INJ 1 MG/ML AMP ONE; +FAMOTIDINE 20 MG TAB PO SCH; -FLM4 PO; +GABAPENTIN 300 MG CAP PO SCH; -LISI-725 PO; +LR 500ML BOLUS, THEN 15ML/HR IV SCH; +LR 60ML/HR IV SCH; -MRLP17X PO; -MULT60CA PO; -PANT1TAB3 PO; -PSYL55.43 PO; -RANI300T2 PO; +ROPIVACAINE 0.5% 5 MG/ML 30 ML VIAL ONE; +ROPIVACAINE 0.5% HCL/PF 150 MG, BUPIVACAINE 0.5% MPF 30 ML, EPINEPHrine 30MG/30ML (OR U... INFIL SCH; +TRANEXAMIC ACID 1,000 MG **IV Intra-op IV SCH; +TRANEXAMIC ACID 1,000 MG **IV Pre-op IV SCH
[2019-08-06] MEDS ORDERED: LIDOCAINE HCL 2% 2 ML VIAL/AMP(20MG/ML) INFIL ONE (09:36)
[2019-08-06] MEDS ORDERED: PROPOFOL IV EMULSION 10 MG/ML 20 ML VIAL IV ONE (09:36)
[2019-08-06] MEDS ORDERED: MIDAZOLAM HCL 1 MG/ML 2ML VIAL ONE (09:36)
[2019-08-06] MEDS ORDERED: fentaNYL citrate 100 MCG/2 ML VIAL ONE (09:36)
[2019-08-06] MEDS ORDERED: LABETALOL HCL IV 5 MG/ML 20ML IV PRN (09:55)
[2019-08-06] MEDS ORDERED: ONDANSETRON INJ 2 MG/ML 2 ML VIAL IV PRN ×2 (09:55→14:34)
[2019-08-06] MEDS ORDERED: ePHEDrine sulfate 50 MG/ML AMP IV PRN (09:55)
[2019-08-06] MEDS ORDERED: HYDROmorphone INJ 1 MG/ML SYRINGE IV PRN (09:55)
[2019-08-06] MEDS ORDERED: MEPERIDINE HCL 25 MG/ML CARP IV PRN (09:55)
[2019-08-06] MEDS ORDERED: ATROPINE SULFATE 0.1 MG/ML 10ML SYR IV PRN (09:55)
[2019-08-06] MEDS ORDERED: fentaNYL citrate 100 MCG/2 ML VIAL IV PRN (09:55)
[2019-08-06] MEDS ORDERED: PHENYLEPHRINE 100MCG/ML 5ML SYR IV PRN (09:55)
[2019-08-06] MEDS ORDERED: ORTHO JOINT ANESTHETIC ONE (11:13)
[2019-08-06] MEDS ORDERED: ONDANSETRON INJ 2 MG/ML 2 ML VIAL ONE (11:48)
[2019-08-06] MEDS ORDERED: ePHEDrine sulfate 50 MG/ML SYR ONE (11:54)
--- NOTE | 2019-08-06 12:57 | Operative Report ---
Post Operative Report Pre & Post Diagnosis Operation Date: 08/06/19 10:40 Pre-Op Diagnosis: LEFT KNEE DEGENERATIVE JOINT DISEASE Post-Op Diagnosis: LEFT KNEE DEGENERATIVE JOINT DISEASE Procedure Operation Date: 08/06/19 10:40 Actual Procedures p Left Total Knee Arthroplasty(Left) - Colt Marina DO Surgeon Colt Marina DO Psychiatry Physician Colt Flowers PAC Estimated Blood Loss 50 Findings Consistent with Post-Op Diagnosis Specimens Left femoral and tibial bone Complications none Disposition Disposition: Recovery Room Indications Calvin is a pleasant 73-year-old male who presented my office with complaints of chronic increasing left knee pain. A knee arthroscopy done 6 months ago showed advanced osteoarthritis of the distal medial femoral condyle. After failing conservative treatment, he elected to proceed with a left total knee arthroplasty. Description of Procedure Implants used: I used a [employer]omet Vanguard total knee arthroplasty system with a size 67.5 femur, 75 tibia, 31 patella, and a size 10 PS polyethylene bearing. All components were cemented in place with Palacos G cement. The patient arrived [facility] for the above procedure. There were seen in the preoperative holding area and the operative extremity was identified and signed. There were given a preoperative antibiotic, a spinal anesthetic and an adductor nerve block. There were taken back to the operating room and laid on the table in supine position. There were given basic sedation. The operative knee was then prepped and draped in sterile fashion. A timeout was done, and the patient and the operative extremity was properly identified. A midline incision was made directly over the patella. Dissection was taken down to the extensor mechanism. A subvastus arthrotomy was used. The medial retinaculum was released and the fat pad was mostly left intact. The knee was flexed and the ACL, PCL, and meniscus were removed. A drill was sent down the center of the femoral canal followed by an intramed ullary иван. Off that иван a distal femoral cutting block was placed. 9 mm was resected off the distal femur at 5 of valgus. A posterior referencing AP sizing guide was then placed on the distal femur. The femur measured to be a size 67.5. 2 drill holes were placed in 3 of external rotation. A 4-in-1 cutting block was then impacted into place. Anterior posterior and chamfer cuts were then made. The posterior stabilizing box guide was then impacted into place and the box was resected for the posterior stabilizing component. The proximal tibia was then exposed. A drill was sent down the center of the tibial canal followed by an intramedullary иван. Off that иван a proximal tibial resection guide was placed. The proximal tibia was then resected. The tibia measured to be a size 75. The tibial plate was then placed in the appropriate rotation and the tibia was punched. The posterior aspect of the knee was then opened up and any additional meniscus fragments and osteophytes were removed. Trial components were then placed. I used a size 10 PS polyethylene insert. The knee was brought through a full range of motion and felt to be stable. The patella was then everted and 8 mm was resected off the posterior aspect of the patella. The patella measured to be a size 31. 3 peg holes were then drilled. A trial patella was placed. The knee was once again brought through a full range of motion and felt to be stable. Trial components were then removed. The surrounding soft tissues were injected with 100 cc of an orthopedic pain control cocktail. All components were then cemented into place with Palacos G cement. The final polyethylene insert was then snapped into place and the anterior bar was locked. Once cement was dry the tourniquet was deflated. Hemostasis was obtained. A dilute betadyne lavage was then done for 3 minutes. The joint was then irrigated with normal saline solution. The subvastus arthrotomy was then closed with #1 Vicryl suture. The skin was closed with 2-0 Vicryl, 3-0V lock suture, and kyler. A soft compressive dressing was placed. The patient was then transferred to a hospital bed and taken to the postanesthesia care unit in stable condition. They tolerated the procedure well. I attest to the content of the Intraoperative Record and any orders documented therein. Any exceptions are noted below.
--- NOTE | 2019-08-06 13:39 | XRay Report ---
TWO VIEWS LEFT KNEE CLINICAL HISTORY: Postoperative examination. FINDINGS: AP and crosstable lateral portable views of the left knee are obtained. A left knee arthrop lasty is in near anatomic alignment. There has been undersurface remodeling of the patella. No acute fracture is seen. There are expected postoperative changes around the knee including skin clips, soft tissue edema, and subcutaneous gas. IMPRESSION: Expected postoperative changes status post left knee arthroplasty. No acute fracture is s een. Electronically signed by: Harris Mustafa M.D. 08/06/2019 1:37 PM
--- NOTE | 2019-08-06 13:58 | Anesthesiology Progress Note ---
Date of Service August 06, 2019 Anesthesia Post Procedure Vital Signs Vital Signs: Temp Pulse Pulse Resp BP Pulse Ox 08/06/19 13:40 36.4 C L 60 16 121/62 96 08/06/19 13:30 77 14 112/58 L 99 08/06/19 13:20 63 66 H 113/66 100 08/06/19 13:11 36.4 C L 63 16 107/54 L 100 08/06/19 09:04 36.7 C 61 20 134/70 98 Transfer of Care Handoff Completed per policy Notes Mental Status: alert / awake / arousable Patient Amnestic to Procedure: Yes Nausea / Vomiting: adequately controlled Pain: adequately controlled Airway Patency, RR, SpO2: stable & adequate BP & HR: stable & adequate Hydration State: stable & adequate Neuraxial Anesthesia: was administered and sensory block is resolving Anesthetic Complications: no major complications apparent and Pt Satisfied with anesthetic care
[2019-08-06] MEDS ORDERED: FLUOCINONIDE 0.05% CR 15 GM TUBE EXT PRN (14:34)
[2019-08-06] MEDS ORDERED: METOCLOPRAMIDE HCL INJ 5 MG/ML 2 ML VIAL IV PRN (14:34)
[2019-08-06] MEDS ORDERED: NALOXONE HCL 0.4 MG/1 ML VIAL/CARP IV PRN (14:34)
[2019-08-06] MEDS ORDERED: OXYCODONE HCL IR 5 MG TAB (IMMEDIATE RELEASE) PO PRN (14:34)
[2019-08-06] MEDS ORDERED: ROPINIROLE HCL 1 MG TABLET PO PRN (14:34)
[2019-08-06] MEDS ORDERED: MAGNESIUM HYDROXIDE SUSP 30 ML UDC PO PRN (14:34)
[2019-08-06] MEDS ORDERED: bisacodyL 10 MG SUPP PR PRN (14:34)
[2019-08-06] MEDS ORDERED: HYDROmorphone INJ 0.5 MG/0.5 ML SYR IV PRN (14:34)
[2019-08-06] MEDS ORDERED: SODIUM CHLORIDE 0.9% 1000ML 1,000 ML IV SCH (14:34)
[2019-08-06] MEDS ORDERED: KETOCONAZOLE 2% CR 15 GM TUBE EXT PRN (15:30)
[2019-08-06] MEDS ORDERED: PHARMACY GLYCEMIC MGMT CONSULT PRN (15:35)
[2019-08-06] MEDS: ACETAMINOPHEN 500 MG TAB PO SCH (17:48)
[2019-08-06] MEDS ORDERED: ROPINIROLE HCL 1 MG TABLET PO ONE (19:00)
[2019-08-06] MEDS: CEFAZOLIN 2000MG 2,000 MG/15 ML SYR IV SCH (19:29)
[2019-08-06] MEDS: DOCUSATE SODIUM 100 MG CAP PO SCH (20:29)
[2019-08-06] MEDS: ASPIRIN 81 MG ECTAB PO SCH (20:29)
[2019-08-06] MEDS ORDERED: CETIRIZINE HCL 10 MG TABLET PO SCH (21:00)
[2019-08-06] MEDS ORDERED: CITALOPRAM 20 MG TAB PO SCH (21:00)
[2019-08-06] MEDS ORDERED: TAMSULOSIN HCL 0.4 MG CAP PO SCH (21:00)
[2019-08-06] MEDS ORDERED: SENNA 8.6 MG TAB PO SCH (21:00)
[2019-08-07] MEDS: CEFAZOLIN 2000MG 2,000 MG/15 ML SYR IV SCH (03:53)
[2019-08-07] MEDS: ACETAMINOPHEN 500 MG TAB PO SCH (05:33)
[2019-08-07 06:29] LABS: Hematocrit (blood only) 32.8 % (42-52); Hemoglobin 10.8 g/dL (14.0-18.0); Mean Corpuscular Hemoglobin 29.8 pg (25-34); Mean Corpuscular Hgb Conc 32.9 g/dL (32-36); Mean Corpuscular Volume 90.4 fL (80-100); Mean Platelet Volume 10.2 fL (7.4-10.4); Platelet Count 211 K/uL (130-400); RDW Standard Deviation 46.3 fL (36.4-46.3); Red Blood Count 3.63 M/uL (4.7-6.1); White Blood Count 12.64 K/uL (4.8-10.8)
[2019-08-07 06:52] LABS: BUN Creatinine Ratio 17.2 (10-20); Calcium 8.7 mg/dl (8.5-10.1); Creatinine Clr Calc Pharmacy 35.6 ml/min; Est GFR (African American) 42.6; Est GFR (Non-African American) 36.8; Potassium 4.9 mmol/L (3.5-5.1)
--- NOTE | 2019-08-07 08:59 | Orthopedic Progress Note ---
Date of Service August 07, 2019 Assessment & Plan (1) Osteoarthritis of left knee: Overall is doing fairly well. The nerve blocks is still working a little bit but it should wear off over the next several hours. He will be seen by physical therapy today for ambulation and range of motion exercises. He can be discharged home later today with [facility]. He will follow-up with orthopedics in 2 weeks. He is on aspirin for DVT prophylaxis. Present on Admission?: Yes Blayne Simpson was seen and examined at bedside this morning. Overall is doing very well. Is not having much pain in the left knee. He still is having a little bit of trouble lifting his left ankle. The nerve block is still in effect. He is happy with his progress to this point. He has no complaints. Physical Exam Musculoskeletal: On physical examination of the left knee, the dressing is clean and dry. He sitting at bedside with his knee flexed at about 100 degrees. He does have some weak dorsiflexion of his left ankle. Results & Data Vital Signs (Past 12 Hours) Vital Signs Temp Pulse Pulse Resp BP BP Pulse Ox 08/07/19 07:30 36.4 C L 57 L 16 128/63 100 08/07/19 03:21 36.6 C 65 16 118/58 L 96 08/06/19 23:02 36.3 C L 61 16 129/68 97 Laboratory Results H & H 07/06/19 08/07/19 Range/Units 11:15 06:12 Hgb 11.4 L 10.8 L (14.0-18.0) g/dL Hct 34.8 L 32.8 L (42-52) % Coagulation 07/06/19 Range/Units 11:15 INR 1.0 (0.9-1.1) Diagnostic Findings Postoperative x-rays of the left knee show the prosthesis to be in anatomic alignment without any evidence of fracture, dislocation, or loosening. PG Care Time/CCT Total # of Minutes Spent Total Time Spent with Patient: Total time spent is greater than 50% in coordination of care (as documented) at patient's floor/unit and/or counseling patient:
[2019-08-07] MEDS ORDERED: lisinopriL 20 MG TAB PO SCH (09:00)
[2019-08-07] MEDS ORDERED: ROPINIROLE HCL 0.25 MG TABLET PO SCH (09:00)
[2019-08-07] MEDS ORDERED: AMLODIPINE BESYLATE 5 MG TAB PO SCH (09:00)
[2019-08-07] MEDS ORDERED: allopurinoL 100 MG TAB PO SCH (09:00)
[2019-08-07] MEDS ORDERED: MULTIVITAMIN TAB PO SCH (09:00)
[2019-08-07] MEDS: DOCUSATE SODIUM 100 MG CAP PO SCH (09:01)
[2019-08-07] MEDS: ASPIRIN 81 MG ECTAB PO SCH (09:01)
--- NOTE | 2019-08-07 09:01 | Discharge Summary ---
Date of Service August 07, 2019 Admission HPI Per Admitting Provider Calvin is a pleasant 73-year-old male who was about 6 months out from a left knee arthroscopy. He had grade 4 arthritic changes in the medial compartment upon inspection during surgery. His symptoms have not improved. He has a lot of pain on the medial side of his knee. It is affecting his daily activities. He would like to proceed with a left total knee arthroplasty. Principal Diagnosis Left total knee arthroplasty Discharge Data Allergies Allergy/AdvReac Type Severity Reaction Status Date / Time No Known Drug Allergies Allergy Unknown . Verified 08/06/19 08:52 Consultations 08/06/19 14:34 Consult Case Management - Discharge Planning Routine Procedures Performed Operation Date: 08/06/19 10:40 Actual Procedures p Left Total Knee Arthroplasty(Left) - Colt Marina DO Ordered Studies 08/06/19 05:00 US - OR guided needle placemen Routine Hospital Course (1) Osteoarthritis of left knee: On August 06, [address] [facility] and underwent a left total knee arthroplasty without complication. He had a spinal anesthetic and a left adductor nerve block. Postoperatively he was started on aspirin for DVT prophylaxis and discharged to general orthopedic floors. His hospital course is uneventful. On postop day #1 his H&H was stable and his pain was well controlled. He was able to participate well with physical therapy. He was then discharged home with [facility]. He will follow-up with orthopedics in 2 weeks. Total Time Total Time Spent Total Time Spent (In Minutes): 20 Discharge Plan Discharge Items Patient Disposition: Home - Home Health Services Reason For Visit: LEFT KNEE DEGENERATIVE JOINT DISEASE Discharge Diagnosis: Left total knee arthroplasty Activity: As commented below Non-emergency contact: Surgeon Call non-emergency contact if: your wound has increased redness and your wound has increased drainage Follow-up/Referrals: Vaishnavi Alvarez CRNP [Primary Care Provider] - Diet: Regular Addtl Attending Provider Instructions: Activity and Therapy Recommendations: * If you are using [facility] then therapy will be provided at your home until they feel you have accomplished all of your goals. * If you are using [facility] then Physical Therapy will be provided until they feel you are ready to start Outpatient Physical Therapy. * If you are not using home therapy then Outpatient Physical Therapy should start about 3-5 days from your day of surgery. Therapy will last about 6-10 weeks * It is important not to put a pillow under your knee when you are relaxing or sleeping. It is just as important to make sure you are getting your knee perfectly straight as it is to regain your knee bend. * You were shown a series of exercises in the hospital. Do these exercises three times each day including the exercises you were shown in physical therapy. * Get up and walk several times each day. For the first four weeks, try not to stand or walk for more than one hour at a time. If you do stand or walk for more than one hour, you will not hurt anything, but your leg will likely swell. * As you feel comfortable, you may change from the walker or crutches to a cane and then to independent walking. Medications: * Narcotic You will likely be sent home from the hospital with a prescription for the narcotic pain medication that worked best throughout your stay. * Aspirin Most patients will be required to take Aspirin 81mg twice a day for 6 weeks after surgery. This is obtained [id number] and a prescription is not necessary. * Other medications may be prescribed for specific circumstances. If you have any questions, please call the office at . * Resume previous home medications unless otherwise instructed TEDs/Elastic Stockings: The white elastic stockings help limit swelling and prevent blood clots from forming in your legs.~ The more you wear them, the more they work. Wear them for six weeks. Dressing Care: If the incision is not draining then you may leave the kyler open to air. If there is a little bit of drainage or if the kyler are getting stuck on your clothing then cover the incision with a dry dressing. The kyler will be removed at your 2 week follow-up appointment. Showering: You may shower 5 days from the day of surgery. Let the soapy shower water run over the kyler and pat them dry. Do not scrub or soak the incision. Things To Watch For: * Drainage from the incision site that occurs more than one week after your surgery. * Increased redness at the incision site. * Fever above 102 degrees Fahrenheit. * Unusual chest pain or shortness of breath. * Call [facility] at with any of the above problems Follow-Up Visit: Follow-up with Dr. Marina 2-3 weeks after your day of surgery. An appointment was probably scheduled when you signed-up for surgery in the office. If you have any questions call Office Instructions: More detailed instructions as well as Frequently Asked Questions were provided in a folder by our office when you signed-up for surgery. Please review these instructions when you get home. If you have any further questions or concerns, please feel free to call the office at [phone] Pending Studies at Discharge: No Stand-Alone Forms: [facility] Medications and DC Order Prescriptions: New oxycodone 5 mg Tablet 5 mg PO Q4H PRN (Reason: pain) Qty: 30 RF: 0 aspirin [Ecotrin Low Strength] 81 mg Tablet,Delayed Release (Dr/Ec) 81 mg PO BID Qty: 84 RF: 0 Continued fluocinonide 0.05 % cream 1 applic topical DAILY PRN (Reason: PSORIASIS) RF: 0 ketoconazole 2 % shampoo 1 applic topical DAILY PRN (Reason: SKIN ISSUES) RF: 0 triamcinolone acetonide 0.1 % lotion 1 applic topical DAILY PRN (Reason: SKIN ISSUES) Qty: 1 RF: 0 cetirizine 10 mg tablet 10 mg PO QPM RF: 0 lisinopril 20 mg tablet 20 mg PO QAM Qty: 30 RF: 0 omega-3 fatty acids 1 ea PO BID RF: 0 ropinirole 1 mg tablet 1 - 4 mg PO DAILY PRN (Reason: Restless Leg(S)) Qty: 120 RF: 5 citalopram 20 mg tablet 20 mg PO QPM Qty: 90 RF: 3 trazodone 50 mg tablet 50 - 100 mg PO HS Qty: 60 RF: 11 amlodipine 5 mg tablet 5 mg PO QAM Qty: 90 RF: 3 polyethylene glycol 3350 [Miralax] 17 gram Powder In Packet 17 g PO HS RF: 0 ranitidine HCl [Zantac] 300 mg Tablet 300 mg PO HS RF: 0 allopurinol 100 mg Tablet 100 mg PO QAM RF: 0 tamsulosin 0.4 mg Capsule 0.4 mg PO QPM RF: 0 baclofen 10 mg Tablet 10 mg PO BID RF: 0 cholecalciferol (vitamin D3) [Vitamin D3] 2,000 unit Capsule 2,000 unit PO HS RF: 0 Discharge Orders: Discharge Order (Routine); Ordered 08/07/19 Ordered By: Colt Marina Admission Data Admit Date/Time: 08/06/19 13:17 Attending Provider: Colt Marina Admit Provider: Colt Marina Primary Care Provider: Vaishnavi Alvarez
== END 2019-08-07 12:50 | disposition home health service (06) | DRG 470 ==
LOC: ASU 08:11 → 3E 13:17

== ENCOUNTER 2024-04-02 11:43 | Observation (INO) ==
[2024-04-02 12:28] LABS: Basophils # (auto) 0.04 K/uL (0.00-0.20); Basophils % (auto) 0.7 %; Eosinophils # (auto) 0.13 K/uL (0.00-0.50); Eosinophils % (auto) 2.4 %; Hematocrit (blood only) 41.2 % (42.0-52.0); Hemoglobin 13.6 g/dl (14.0-18.0); Immature Granulocytes # (auto) 0.01 K/uL (0.01-0.20); Immature Granulocytes % (auto) 0.2 %; Lymphocytes # (auto) 1.02 K/uL (1.20-3.40); Lymphocytes % (auto) 19.1 %; Mean Corpuscular Hemoglobin 29.1 pg (25.0-34.0); Mean Platelet Volume 9.6 fL (9.4-12.4); Monocytes # (auto) 0.36 K/uL (0.11-0.59); Monocytes % (auto) 6.7 %; Neutrophils # (auto) 3.78 K/uL (1.40-6.50); Neutrophils % (auto) 70.9 %; Platelet Count 280 K/uL (130-400); RDW Coefficient of Variation 14.3 % (11.5-14.5); RDW Standard Deviation 45.9 fL (36.4-46.3); Red Blood Count 4.68 M/uL (4.70-6.10); White Blood Count 5.34 K/ul (4.8-10.8)
--- NOTE | 2024-04-02 12:36 | Electrocardiogram Report ---
Test Reason : Blood Pressure : / mmHG Vent. Rate : 062 BPM Atrial Rate : 062 BPM P-R Int : 152 ms QRS Dur : 092 ms QT Int : 416 ms P-R-T Axes : 063 -29 006 degrees QTc Int : 422 ms Normal sinus rhythm Incomplete right bundle branch block Borderline ECG When compared with ECG of 03-APR-2023 10:15, No significant change Confirmed by Hector Sal ([id number]) on 04/02/2024 12:35:58 PM Referred By: Confirmed By:Hector Sal
[2024-04-02 12:44] LABS: Albumin Globulin Ratio 1.5 (0.9-2); Albumin Level 4.3 gm/dl (3.4-5.0); BUN Creatinine Ratio 13.4 (10-20); Bilirubin,Total 0.4 mg/dl (0.2-1.0); Creatinine Clr Calc Pharmacy 33.3 ml/min; Est GFR (African American) 45.7 ml/min; Est GFR (Non-African American) 39.5 ml/min; Globulin 2.9 gm/dl (2.5-4.0); Potassium 4.5 mmol/L (3.5-5.1); Total Protein 7.2 gm/dl (6.0-8.3)
[2024-04-02 12:49] LABS: Troponin I High Sensitivity 5.2 pg/ml (0-20)
--- NOTE | 2024-04-02 13:43 | Emergency Department Note ---
History of Present Illness General Chief complaint: Cardiac Assessment Stated complaint: ACID REFLUX, CHEST PAINS Time Seen by Provider: 04/02/24 13:18 Source: patient, family (Daughter who is at the bedside), RN notes reviewed and old records reviewed (03/22/24-nephrology office visit.) Mode of arrival: ambulatory Limitations: no limitations History of Present Illness Maximum Pain Intensity: 8 This patient is a 78-year-old male comes in after having epigastric pain feel like he is a lot of acid. He has been having issues with this since March 22 although he tells me as he has always had stomach problems since childhood. He has some nausea has belching and burping a lot . no neck pain. no pain in the back it does radiate up into his chest but starts in the abdomen. He has a history of diverticulitis as well. No abdominal surgeries on no blood thinners no injuries. It got worse this morning. He called his doctor's office and they recommended he come here Home Medications Medication Instructions Recorded Confirmed Type polyethylene glycol 3350 17 gram 17 g PO HS 08/11/18 03/22/24 History oral powder packet (Miralax) ketoconazole 2 % shampoo 1 applic topical DAILY PRN SKIN 05/27/19 03/22/24 History ISSUES cetirizine 10 mg tablet 10 mg PO QPM 06/08/19 03/22/24 History psyllium husk 3.4 gram/5.4 gram 1 tbs PO HS 10/22/19 03/22/24 History oral powder (Metamucil) vitamins A,C,[id number]-[id number]-[id number] 4,296 1 cap PO BID 10/22/19 03/22/24 History mcg-226 mg-90 mg capsule (PreserVision AREDS) fluticasone propionate 50 2 spray intranasal QAM PRN sinus 03/19/21 03/22/24 Rx mcg/actuation nasal congestion #15.8 mL spray,suspension ferrous sulfate 325 mg (65 mg 325 mg PO DAILY 06/13/21 03/22/24 History iron) tablet (Feosol) mecobalamin (vitamin B12) 1,000 1,000 mcg PO DAILY 06/13/21 03/22/24 History mcg chewable tablet multivitamin 1 tab PO QAM 07/01/22 03/22/24 History baclofen 10 mg tablet 10 mg PO BID #180 tabs 10/27/22 05/20/24 Rx peg 400-propylene glycol 0.4 %-0.3 1 drp ophthalmic (eye) DAILY PRN 02/20/23 03/22/24 History % eye drops (Systane (propylene Dry Eyes glycol)) ascorbic acid (vitamin C) 1,000 mg 1 g PO DAILY 04/04/23 03/22/24 History tablet (Vitamin C) citalopram 20 mg tablet 20 mg PO QPM #90 tabs 05/26/23 03/22/24 Rx omeprazole 40 mg capsule,delayed 40 mg PO QAM #90 caps 05/26/23 03/22/24 Rx release amlodipine 5 mg tablet 5 mg PO QAM #90 tabs 07/03/23 03/22/24 Rx fluocinonide 0.05 % topical cream 1 applic topical DAILY PRN 08/13/23 03/22/24 Rx PSORIASIS #120 grams allopurinol 100 mg tablet 100 mg PO QAM #90 tabs 10/13/23 03/22/24 Rx docusate sodium 100 mg capsule 100 mg PO BID #60 caps 10/13/23 03/22/24 Rx lisinopril 20 mg tablet 20 mg PO QAM #90 tabs 10/13/23 03/22/24 Rx trazodone 100 mg tablet 100 - 200 mg (1 - 2 x 100 mg) PO 10/13/23 03/22/24 Rx QPM #180 tabs triamcinolone acetonide 0.1 % 1 applic topical DAILY PRN Rash 10/16/23 03/22/24 Rx topical cream #80 grams ropinirole 1 mg tablet See Rx Instructions PO DAILY PRN 12/24/23 03/22/24 Rx restless leg(s) #90 tabs tamsulosin 0.4 mg capsule 0.4 mg PO QPM PRN Bph #90 caps 02/09/24 03/22/24 Rx Allergies Allergy/AdvReac Type Severity Reaction Status Date / Time No Known Drug Allergies Allergy Verified 03/22/24 09:12 Past Med/Surg History Problem List (Updated 04/02/24 @ 16:37 by Colt Wagner MD) Chronic GERD (Acute) Chest pain (Acute) Episode of altered consciousness (Acute) Epigastric abdominal pain (Acute) Prediabetes History of falling Lesion of left [place] kidney 1.2cm lesion per CT 05/28/23 Left lower quadrant abdominal pain History of surgery RT FOOT FRACTURE, S/P REPAIR Sensorineural hearing loss of both ears (Chronic) Restless legs syndrome (Chronic) Psoriasis (Chronic) Macular degeneration (Acute) Lichen planus (Acute) Laryngopharyngeal reflux (Acute) Internal hemorrhoids (Acute) Hypertension (Acute) Gout (Acute) Esophageal dyskinesia (Acute) Dyslipidemia (Acute) Diverticulosis (Acute) Disc degeneration, lumbar (Acute) Depression (Chronic) Chronic kidney disease (CKD), stage III (moderate) (Acute) Benign prostatic hyperplasia with urinary obstruction (Acute) Anemia (Acute) Vitamin D deficiency (Chronic) S/P total knee arthroplasty Impacted cerumen of both ears Rotator cuff tear, right CMC arthritis Erectile dysfunction H/O arthroscopy of shoulder Left Encounter for pre-operative examination History of colon polyps Cerumen impaction Tendinitis of right rotator cuff Olecranon bursitis of right elbow Erectile dysfunction Rotator cuff arthropathy of left shoulder Ganglion cyst Status post reverse total replacement of left shoulder (~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) Chronic anemia History of repair of rotator cuff RIGHT, DISTAL CLAVICLE EXCISION Hypertension (Chronic) Restless leg syndrome Chronic back pain Osteoarthritis Degenerative disc disease BPH (benign prostatic hyperplasia) GERD (gastroesophageal reflux disease) Controlled Diverticulitis Hx History of colonoscopy History of carpal tunnel release R/L History of surgery HX OF LEFT ANKLE FRACTURE History of cataract extraction with lens replacement R/L History of arthroscopy of left shoulder + RCR Chronic kidney disease, stage III (moderate) Baseline creatinine 1.6-1.8 per chart review Follows with [facility] nephro Medical History Psoriasis Cardiac murmur no cardio History of COVID-19 Dx 12/2021, symptoms at time: cough, SOB, weakness, loss of appetite, fatigue > resolved Hyperlipidemia Hearing deficit Macular degeneration of both eyes Depression Gout Surgical History History of left shoulder replacement Fall 2021 History of esophagogastroduodenoscopy (EGD) S/P epidural steroid injection History of open reduction and internal fixation (ORIF) procedure Left foot History of total left knee replacement History of arthroscopic knee surgery Left knee arthroscopy (12/17/18): [place] [facility] [place] Family History Other No family history of adverse response to anesthesia Denies family history of Colon cancer Ovarian cancer Prostate cancer Myocardial infarction Breast cancer Social History Smoking Status: Former smoker Tobacco Type: Cigarettes Age Started Using Tobacco: 16; Age Quit Using Tobacco: 35; packs per day: 1; Second Hand Exposure: No; Do You Dip or Chew Tobacco: No; Hx Alcohol Use: No Hx Substance Use: No Preferred Language: German Communication Ability: Effective Visual Impairment: No Limitations Hearing Ability: Use of Hearing Aid Residential Green Building Designer Required: No Beliefs That Will Affect Care: None marital status: / marital status details: passed on March of 2022 Current Living Situation: Alone Current Living Situation Comment: daughter helps current occupational status: retired current occupation: retired from working at [employer] Feels Safe at Home: Yes Childhood Exposure to Second-Hand Smoke: Yes Diet: regular caffeine: No Dental Care, Regularly: No Physical Activity Frequency: Other Physical Activity Frequency Comment: active in the summer months Seatbelt Use: always Sunscreen Use: No Assistive Devices: Denture - Upper, Denture - Lower, Glasses and Hearing Aid - Bilateral Review of Systems A total of 10 systems reviewed and were otherwise negative Physical Exam Vital Signs Vital Signs - 24 hr 04/02/24 11:53 04/02/24 14:25 04/02/24 14:25 Temperature 36.3 C L Temperature Source Temporal Artery Scan Pulse Rate 66 Pulse Rate [Finger] 57 L Respiratory Rate 18 15 Respiratory Effort / Characteristics Non-Labored Spontaneous Non-Labored Respiratory Depth Normal Normal Respiratory Pattern Regular Regular Blood Pressure 157/74 H Blood Pressure [Left Arm] 158/90 H Blood Pressure Mean 101 Blood Pressure Mean [Left Arm] 112 Blood Pressure Position [Left Arm] Semi-fowlers Pulse Oximetry 99 99 100 Oxygen Delivery Method Room Air Room Air Room Air Oxygen Flow Rate 99 Sepsis Recent Fever Within 48 Hours No Sepsis New/Unexplained Change in Mental Status N/A Sepsis Action Taken by Nursing No Action Required 04/02/24 14:25 04/02/24 15:36 Temperature Temperature Source Pulse Rate 59 L 70 Pulse Rate [Finger] Respiratory Rate 19 Respiratory Effort / Characteristics Respiratory Depth Respiratory Pattern Blood Pressure Blood Pressure [Left Arm] Blood Pressure Mean Blood Pressure Mean [Left Arm] Blood Pressure Position [Left Arm] Pulse Oximetry 100 Oxygen Delivery Method Room Air Oxygen Flow Rate Sepsis Recent Fever Within 48 Hours Sepsis New/Unexplained Change in Mental Status Sepsis Action Taken by Nursing General: Well developed well nourished older male who appears in no acute distress, breathing comfortably on room air. Normal speech HEENT: Normal cephalic atraumatic. Pupils are equal round and reactive to light. Extraocular movements are intact. Oropharynx is pink with moist mucous membranes. No swelling of the mouth lips or tongue. Neck: Supple with a midline trachea. No meningeal signs or stiffness, no JVD or bruits. No Stridor. Chest: Clear to auscultation bilaterally. No wheezes or rhonchi. No increased work of breathing. Heart: Regular rate and rhythm without murmurs or gallops. Abdomen: Soft moderately tender in the epigastric area he does seem somewhat distended in the abdomen but no peritonitis. No rebound guarding or rigidity. Extremities: No cyanosis clubbing or edema. No calf tenderness or assymetry Spine/Back. Non tender to palpation. No CVA tenderness Skin: Good turgor without rashes. Neurologic exam: Cranial nerves two through 12 are intact. Motor and sensation are intact and symmetrical throughout. Course Administered Medications Discontinued Medications Sodium Chloride (Nss) 1,000 mls @ 999 mls/hr IV .Q1H1M ONE Stop: 04/02/24 14:31 Last Infusion: 04/02/24 16:10 Dose: Infused Documented By: Admin: 04/02/24 14:20 Dose: 999 mls/hr Documented By: TJ Ioversol (Optiray 320 125ml) 121 ml IV ONCE ONE Stop: 04/02/24 15:16 Last Admin: 04/02/24 15:15 Dose: 121 ml Documented By: LORNA Ketorolac Tromethamine (Ketorolac Tromethamine 15 Mg/Ml Vial) 10 mg IV NOW ONE Stop: 04/02/24 13:32 Last Admin: 04/02/24 14:29 Dose: 10 mg Documented By: TJ Morphine Sulfate (Morphine Sulfate 2 Mg/Ml Carp) 2 mg IV NOW STA Stop: 04/02/24 15:38 Last Admin: 04/02/24 15:58 Dose: 2 mg Documented By: ALEM Ondansetron HCl (Ondansetron Inj 2 Mg/Ml 2 Ml Vial) 4 mg IV NOW STA Stop: 04/02/24 13:32 Last Admin: 04/02/24 14:30 Dose: 4 mg Documented By: TJ Medical Decision Making Differential Diagnosis Acute coronary syndrome, intra-abdominal process, bowel obstruction, pancreatitis, gastritis, gallbladder disease, electrolyte or metabolic abnormalities, GERD, reflux, Medical Records Attestation: I reviewed the patient's medical records. Home Medications Current Medication List: was personally reviewed by me Laboratory Data Attestation: I reviewed the patient's lab results. 04/02/24 12:05 04/02/24 12:05 Lab Results 04/02/24 04/02/24 04/02/24 Range/Units 12:05 14:59 15:02 WBC 5.34 (4.8-10.8) K/ul RBC 4.68 L (4.70-6.10) M/uL Hgb 13.6 L (14.0-18.0) g/dl Hct 41.2 L (42.0-52.0) % MCV 88.0 (80.0-100.0) fL MCH 29.1 (25.0-34.0) pg MCHC 33.0 (32.0-36.0) g/dL RDW Std Deviation 45.9 (36.4-46.3) fL RDW Coeff of Ryan 14.3 (11.5-14.5) % Plt Count 280 (130-400) K/uL MPV 9.6 (9.4-12.4) fL Immature Gran % (Auto) 0.2 % Neut % (Auto) 70.9 % Lymph % (Auto) 19.1 % [place] % (Auto) 6.7 % Eos % (Auto) 2.4 % Baso % (Auto) 0.7 % Neut # (Auto) 3.78 (1.40-6.50) K/uL Lymph # (Auto) 1.02 L (1.20-3.40) K/uL [place] # (Auto) 0.36 (0.11-0.59) K/uL Eos # (Auto) 0.13 (0.00-0.50) K/uL Baso # (Auto) 0.04 (0.00-0.20) K/uL Immature Gran # (Auto) 0.01 (0.01-0.20) K/uL Sodium 138 (136-145) mmol/L Potassium 4.5 (3.5-5.1) mmol/L Chloride 106 (98-107) mmol/L Carbon Dioxide 26 (21-32) mmol/L Anion Gap 6 (3-11) BUN 22 (6-23) mg/dl Creatinine 1.64 H (0.6-1.4) mg/dl Est Cr Clr Drug Dosing 33.3 ml/min Est GFR ( Amer) 45.7 ml/min Est GFR (Non-Af Amer) 39.5 ml/min BUN/Creatinine Ratio 13.4 (10-20) Glucose 132 H (70-99(Fasting)) mg/dl POC Glucose 115 H (70-99) mg/dl Calcium 9.0 (8.6-10.3) mg/dl Total Bilirubin 0.4 (0.2-1.0) mg/dl AST 17 (13-39) U/L ALT 14 (7-52) U/L Alkaline Phosphatase 95 (34-104) U/L Troponin I High Sens 5.2 5.1 (0-20) pg/ml Total Protein 7.2 (6.0-8.3) gm/dl Albumin 4.3 (3.4-5.0) gm/dl Globulin 2.9 (2.5-4.0) gm/dl Albumin/Globulin Ratio 1.5 (0.9-2) Lipase 35 (11-82) U/L Imaging Data Attestation: I personally reviewed and interpreted this imaging study as follows: My Impression: Check x-ray -no acute infiltrate, failure, pneumothorax. No free air. Radiologist's Impression: Chest X-Ray 04/02/24 11:59 XR chest 1V portable CLINICAL HISTORY: Chest pain, nonspecific COMPARISON STUDY: Chest radiograph July 03, 2022. Chest CT July 12, 2022. FINDINGS: Left shoulder arthroplasty is incidentally noted. Lung volumes are normal. There is no consolidation. Linear left basilar density represents atelectasis. There is no pneumothorax or pleural effusion. Cardiac size is normal. Mediastinal contours are normal. There is no evidence for pulmonary edema. IMPRESSION: No acute cardiopulmonary findings. ACT 112: Negative or not required by law. Electronically signed by: Manish Aguilar M.D. 04/02/2024 3:02 PM Abdomen/Pelvis CT 04/02/24 13:30 CT abd pelvis IV con only CLINICAL HISTORY: epigastric pain TECHNIQUE: Helical axial images of the abdomen and pelvis were obtained and displayed. Automated dose lowering techniques and/or adjustment according to patient size were utilized for this exam. This exam was performed with intravenous contrast. COMPARISON: Comparison is made to CT abdomen pelvis 05/28/2023 FINDINGS: Lower chest: For findings above the diaphragm, please see CT chest performed same day. Liver: Unremarkable. No focal lesions are seen. Gallbladder and biliary tree: No calcified gallstones. Normal caliber wall. No intra- or extrahepatic biliary ductal dilation. Pancreas: Unremarkable, no focal lesions. Spleen: Splenule is incidentally noted. Adrenals: Unremarkable. Kidneys and ureters: Renal cysts are seen. There are also bilateral subcentimeter hypodensities which are too small to characterize but likely represent cysts. Bladder: Unremarkable. Reproductive organs: Unremarkable. Bowel: Diverticulosis is seen without diverticulitis. The appendix is normal. Lymph nodes Retroperitoneal: Unremarkable. Pelvic: Unremarkable. Mesenteric: Unremarkable. Peritoneum: Normal. Vessels: Atherosclerotic calcifications are seen. Abdominal wall: Left fat containing inguinal hernia. Bones: Old healed rib fractures are seen. Degenerative changes are seen in the spine. IMPRESSION: 1. No acute abnormalities. 2. Diverticulosis without diverticulitis. 3. Bilateral renal cystic lesions with additional hypodensities which are too small to characterize. 4. Additional findings as above. ACT 112: Negative or not required by law. Electronically signed by: Hira Jin M.D. 04/02/2024 3:38 PM Chest CTA 04/02/24 15:01 CT angio chest dissec wo/w con CLINICAL HISTORY: chest pain TECHNIQUE: Multidetector row helical CT of the chest was performed before and after injection of IV contrast. Coronal, sagittal, and MIP reformations were obtained. Automated dose lowering techniques and/or adjustment according to patient size were utilized for this exam. Comparison: Comparison is made to CT chest 07/12/2022 FINDINGS: Lungs and pleura: Atelectasis versus scarring is seen in the dependent portions of the lungs. No suspicious pulmonary nodules. Heart and pericardium: Cardiomegaly is seen with biatrial enlargement. Mitral annular calcifications are seen. Vessels: No aortic dissection or intramural hematoma is seen. Moderate atherosclerotic disease is seen. Mediastinum and frantz: Subcentimeter lymph nodes are seen. Chest wall and lower neck: Unremarkable. Abdomen: For findings below the diaphragm, please refer to CT of the abdomen dated the same. Bones: Degenerative changes in the thoracic spine. Left shoulder arthroplasty is seen. IMPRESSION: No acute abnormality and in particular no evidence of acute aortic injury. ACT 112: Negative or not required by law. Electronically signed by: Hira Jin M.D. 04/02/2024 3:[address] 04/02/24 15:01 CT OF THE HEAD WITHOUT CONTRAST CLINICAL HISTORY: Altered mental status. COMPARISON STUDY: Head CT June 04, 2017. CT DOSE: 4119.93 mGy.cm TECHNIQUE: Helical axial images of the head were obtained without IV contrast. Automated exposure control was utilized for the study. A dose lowering technique was utilized adhering to the principles of ALARA. FINDINGS: No acute intracranial hemorrhage, midline shift or mass effect is present. White matter hypodensities favor small vessel disease. The ventricular system is unremarkable. The basal cisterns are patent. No extra-axial collections are present. There are no findings to suggest acute dural sinus thrombosis or acute territorial infarct. No significant calvarial abnormalities are present. Small amount of fluid within the left mastoid air cells. IMPRESSION: No acute intracranial findings. ACT 112: Negative or not required by law. Electronically signed by: Manish Aguilar M.D. 04/02/2024 3:35 PM ECG Data Attestation: I personally reviewed and interpreted this ECG as follows: Indication: + abdominal pain Rate (beats per minute): 62 Rhythm: + normal sinus ECG Intervals/blocks: + Incomplete right bundle branch block, + Normal QT and + Normal MA ECG [place]: + Normal ECG ST segments: + Normal ST segments ECG Findings: no PACs or no PVCs Comparison ECG Date: from (04/03/23) Change: no significant change Additional Comments: EKG #2: Poor baseline but normal sinus rhythm suspected with a rate of 77 no ischemic changes or change compared EKG #1 MDM Narrative This patient comes in as described above. I saw the patient and the critical pathway subway to help expedite his care. He is having epigastric bloating and reflux that is causing some chest discomfort. I did a full workup to evaluate for possible cardiac and other etiologies his EKG is unremarkable troponin is also negative despite having multiple hours/days of pain makes cardiac symptoms unlikely tells me he has chronic GI issues has no significant electrolyte or metabolic abnormalities and nothing to suggest infection. I did order second troponin as well as Toradol 10 mg IV and Zofran 4 mg IV for pain and nausea management and a CAT scan of his abdomen pelvis. He was reassessed frequently. While waiting for the CAT scan the nurses came and got me because his condition changed. His daughter said he stared off and then was acting out of it as he seems different than when I first saw him he is complaining that his legs hurt he does have restless leg and has not taken his medications today. He had received the medication about 15 minutes prior he has no shortness of breath no evidence of airway compromise on exam his lungs are clear he has no GI symptoms his abdomen remains tender. We checked the BSG was within normal limits. We did a second EKG and there is no change compared to first he does have stable vital signs. He was not having a seizure he chest CT angiography as well as the abdomen and the head. He was reassessed after the CAT scans and is doing significantly better. He is talking and looks well. He was having pain and was given morphine 2 mg IV which she tolerated very well I rechecked him. I did talk to Dr. Yates, the [facility] hospitalist, in consultation and the patient will be admitted/observed. Continuous cardiac monitoring: Orders placed in the EMR for continuous cardiac monitoring: Upon my evaluation patient was noted to be in normal sinus rhythm rate of 65 has a nonfocal neurologic exam otherwise. Impression & Plan Episode of altered consciousness, Epigastric abdominal pain, Chest pain, Chronic GERD Discharge Plan Visit Data Chief Complaint: Cardiac Assessment Stated Complaint: ACID REFLUX, CHEST PAINS ED Provider: Colt Wagner Discharge Problem: Episode of altered consciousness, Epigastric abdominal pain, Chest pain, Chronic GERD Forms Stand Alone Forms: My [facility] Prescriptions Prescriptions: No Action PreserVision AREDS [id number] capsule 1 cap PO BID Metamucil 3.4 gram/5.4 gram powder 1 tbs PO HS fluticasone propionate 50 mcg/actuation spray,suspension 2 spray intranasal QAM PRN (Reason: sinus congestion) Qty: 15.8 6RF Rx Instructions: administer into each nostril baclofen 10 mg tablet 10 mg PO BID Qty: 180 3RF citalopram 20 mg tablet 20 mg PO QPM Qty: 90 3RF omeprazole 40 mg capsule,delayed release(DR/EC) 40 mg PO QAM Qty: 90 3RF amlodipine 5 mg tablet 5 mg PO QAM Qty: 90 3RF allopurinol 100 mg tablet 100 mg PO QAM Qty: 90 3RF Rx Instructions: TAKE 1 TABLET BY MOUTH EVERY MORNING lisinopril 20 mg tablet 20 mg PO QAM Qty: 90 3RF docusate sodium 100 mg capsule 100 mg PO BID Qty: 60 11RF trazodone 100 mg tablet 100 - 200 mg PO QPM Qty: 180 3RF Rx Instructions: Take 1 to 2 Tablets By Mouth At Bedtime triamcinolone acetonide 0.1 % cream 1 applic topical DAILY PRN (Reason: Rash) Qty: 80 1RF Rx Instructions: apply to area on face PRN ropinirole 1 mg tablet See Rx Instructions PO DAILY PRN (Reason: restless leg(s)) Qty: 90 3RF Rx Instructions: 1 - 4 tablets PO daily PRN; mecobalamin (vitamin B12) 1,000 mcg tablet,chewable 1,000 mcg PO DAILY ferrous sulfate [Feosol] 325 mg (65 mg iron) tablet 325 mg PO DAILY ketoconazole 2 % shampoo 1 applic topical DAILY PRN (Reason: SKIN ISSUES) cetirizine 10 mg tablet 10 mg PO QPM Systane (propylene glycol) 0.4-0.3 % drops 1 drp ophthalmic (eye) DAILY PRN (Reason: Dry Eyes) fluocinonide 0.05 % cream 1 applic topical DAILY PRN (Reason: PSORIASIS) Qty: 120 3RF Rx Instructions: apply to rash on body tamsulosin 0.4 mg capsule 0.4 mg PO QPM PRN (Reason: Bph) Qty: 90 3RF polyethylene glycol 3350 [Miralax] 17 gram Powder In Packet 17 g PO HS multivitamin Tablet 1 tab PO QAM ascorbic acid (vitamin C) [Vitamin C] 1,000 mg Tablet 1 g PO DAILY Referrals Referrals: Vaishnavi Cruz CRNP [Primary Care Provider] - Discharge Problem: Chest pain Qualifiers: Chest pain type: unspecified Qualified Code(s): R07.9 - Chest pain, unspecified
[2024-04-02] MEDS: SODIUM CHLORIDE 0.9% 1,000 ML IV ONE (14:20)
[2024-04-02] MEDS: KETOROLAC TROMETHAMINE 15 MG/ML VIAL IV ONE (14:29)
[2024-04-02] MEDS: ONDANSETRON INJ 2 MG/ML 2 ML VIAL IV STA (14:30)
--- NOTE | 2024-04-02 15:03 | XRay Report ---
XR chest 1V portable CLINICAL HISTORY: Chest pain, nonspecific COMPARISON STUDY: Chest radiograph July 03, 2022. Chest CT July 12, 2022. FINDINGS: Left shoulder arthroplasty is incidentally noted. Lung volumes are normal. There is no cons olidation. Linear left basilar density represents atelectasis. There is no pneumothorax or pleural ef fusion. Cardiac size is normal. Mediastinal contours are normal. There is no evidence for pulmonary e vamsi. IMPRESSION: No acute cardiopulmonary findings. ACT 112: Negative or not required by law. Electronically signed by: Manish Aguilar M.D. 04/02/2024 3:02 PM
[2024-04-02] MEDS: OPTIRAY 320 125ml IV ONE (15:15)
--- NOTE | 2024-04-02 15:33 | CT Scan Report ---
CT angio chest dissec wo/w con CLINICAL HISTORY: chest pain TECHNIQUE: Multidetector row helical CT of the chest was performed before and after injection of IV c ontrast. Coronal, sagittal, and MIP reformations were obtained. Automated dose lowering techniques an d/or adjustment according to patient size were utilized for this exam. Comparison: Comparison is made to CT chest 07/12/2022 FINDINGS: Lungs and pleura: Atelectasis versus scarring is seen in the dependent portions of the lungs. No susp icious pulmonary nodules. Heart and pericardium: Cardiomegaly is seen with biatrial enlargement. Mitral annular calcifications are seen. Vessels: No aortic dissection or intramural hematoma is seen. Moderate atherosclerotic disease is see n. Mediastinum and frantz: Subcentimeter lymph nodes are seen. Chest wall and lower neck: Unremarkable. Abdomen: For findings below the diaphragm, please refer to CT of the abdomen dated the same. Bones: Degenerative changes in the thoracic spine. Left shoulder arthroplasty is seen. IMPRESSION: No acute abnormality and in particular no evidence of acute aortic injury. ACT 112: Negative or not required by law. Electronically signed by: Hira Jin M.D. 04/02/2024 3:32 PM
--- NOTE | 2024-04-02 15:36 | CT Scan Report ---
CT OF THE HEAD WITHOUT CONTRAST CLINICAL HISTORY: Altered mental status. COMPARISON STUDY: Head CT June 04, 2017. CT DOSE: 4119.93 mGy.cm TECHNIQUE: Helical axial images of the head were obtained without IV contrast. Automated exposure con trol was utilized for the study. A dose lowering technique was utilized adhering to the principles o f ALARA. FINDINGS: No acute intracranial hemorrhage, midline shift or mass effect is present. White matter hyp odensities favor small vessel disease. The ventricular system is unremarkable. The basal cisterns are patent. No extra-axial collections are present. There are no findings to suggest acute dural sinus t hrombosis or acute territorial infarct. No significant calvarial abnormalities are present. Small shirley unt of fluid within the left mastoid air cells. IMPRESSION: No acute intracranial findings. ACT 112: Negative or not required by law. Electronically signed by: Manish Aguilar M.D. 04/02/2024 3:35 PM
--- NOTE | 2024-04-02 15:39 | CT Scan Report ---
CT abd pelvis IV con only CLINICAL HISTORY: epigastric pain TECHNIQUE: Helical axial images of the abdomen and pelvis were obtained and displayed. Automated dose lowering techniques and/or adjustment according to patient size were utilized for this exam. This e xam was performed with intravenous contrast. COMPARISON: Comparison is made to CT abdomen pelvis 05/28/2023 FINDINGS: Lower chest: For findings above the diaphragm, please see CT chest performed same day. Liver: Unremarkable. No focal lesions are seen. Gallbladder and biliary tree: No calcified gallstones. Normal caliber wall. No intra- or extrahepatic biliary ductal dilation. Pancreas: Unremarkable, no focal lesions. Spleen: Splenule is incidentally noted. Adrenals: Unremarkable. Kidneys and ureters: Renal cysts are seen. There are also bilateral subcentimeter hypodensities which are too small to characterize but likely represent cysts. Bladder: Unremarkable. Reproductive organs: Unremarkable. Bowel: Diverticulosis is seen without diverticulitis. The appendix is normal. Lymph nodes Retroperitoneal: Unremarkable. Pelvic: Unremarkable. Mesenteric: Unremarkable. Peritoneum: Normal. Vessels: Atherosclerotic calcifications are seen. Abdominal wall: Left fat containing inguinal hernia. Bones: Old healed rib fractures are seen. Degenerative changes are seen in the spine. IMPRESSION: 1. No acute abnormalities. 2. Diverticulosis without diverticulitis. 3. Bilateral renal cystic lesions with additional hypodensities which are too small to characterize. 4. Additional findings as above. ACT 112: Negative or not required by law. Electronically signed by: Hira Jin M.D. 04/02/2024 3:38 PM
[2024-04-02 15:55] LABS: Troponin I High Sensitivity 5.1 pg/ml (0-20)
[2024-04-02] MEDS: MoRPHine SULFATE 2 MG/ML CARP IV STA (15:58)
[2024-04-02] MEDS ORDERED: ONDANSETRON INJ 2 MG/ML 2 ML VIAL IV PRN (16:49)
[2024-04-02] MEDS ORDERED: MELATONIN 3 MG TAB PO PRN (16:49)
[2024-04-02] MEDS ORDERED: POLYETHYLENE (MIRALAX) 17 GM PACK PO PRN (16:49)
[2024-04-02] MEDS ORDERED: ACETAMINOPHEN 325 MG TAB PO PRN (16:49)
[2024-04-02] MEDS ORDERED: ALUMINUM/MAGNESIUM SUSP 30 ML UDC PO PRN (16:49)
[2024-04-02] MEDS ORDERED: FLUTICASONE PROPIONATE NA SPR 16 GM BTL NAE PRN (16:54)
[2024-04-02] MEDS ORDERED: TRIAMCINOLONE ACET 0.1% CR 15 GM TUBE TOP PRN (16:54)
[2024-04-02] MEDS ORDERED: TAMSULOSIN HCL 0.4 MG CAP PO PRN (16:54)
[2024-04-02] MEDS ORDERED: ARTIFICIAL TEARS OP PRN (17:08)
[2024-04-02] MEDS ORDERED: BETAMETHASONE DIP AUG (DIPROLENE) 0.05% CR 15 GM TUBE EXT PRN (17:10)
--- NOTE | 2024-04-02 17:15 | History & Physical Report ---
Date of Service April 02, 2024 Assessment & Plan (1) Epigastric abdominal pain: Plan: related to GERD ?, PPI obtain trop r/o ACS (2) Episode of altered consciousness: Plan: probably episode of RLS, doubt seizures, patient remembers all details continue Requip obtain iron study (3) Chronic GERD: Plan: continue PPI (4) Restless legs syndrome: Plan: continue Requip, Baclofen (5) Hypertension: Plan: stable, continue home meds (6) Chronic kidney disease (CKD), stage III (moderate): Plan: at baseline monitor BMP (7) Anemia: Plan: stable anemia of chronic kidney disease obtain iron study History of Present Illness Chief Complaint: abdominal pain Primary Care Provider: ISRAEL Joiner 78 yo male with h/o CKD st 3, HTN, severe RLS, on Requip, GERD, presents with severe epigastric pain since yesterday, CT abdomen, pelvis in ER no acute abnormalities, CTA chest no dissection, trop not done, EKG incomplete RBBB, he had an episode of restless leg movement in ER, looked like seizure activity, he did not have his Requip since this morning, he is taking PPI, denies black stools or bloody stools, no weight loss, had EGD, colonoscopy before, denies any other symptoms, usually eats one meal a day around 6-7 pm. Allergies Allergy/AdvReac Type Severity Reaction Status Date / Time No Known Allergies Allergy Verified 04/02/24 16:50 Home Medications Medication Instructions Recorded Confirmed Type polyethylene glycol 3350 17 gram 17 g PO HS 08/11/18 04/02/24 History oral powder packet (Miralax) ketoconazole 2 % shampoo 1 applic topical DAILY PRN SKIN 05/27/19 04/02/24 History ISSUES cetirizine 10 mg tablet 10 mg PO QPM 06/08/19 04/02/24 History psyllium husk 3.4 gram/5.4 gram 1 tbs PO HS 10/22/19 04/02/24 History oral powder (Metamucil) vitamins A,C,[id number]-qnwk-wmjltx 4,296 1 cap PO BID 10/22/19 04/02/24 History mcg-226 mg-90 mg capsule (PreserVision AREDS) fluticasone propionate 50 2 spray intranasal QAM PRN sinus 03/19/21 04/02/24 Rx mcg/actuation nasal congestion #15.8 mL spray,suspension ferrous sulfate 325 mg (65 mg 325 mg PO DAILY 06/13/21 04/02/24 History iron) tablet (Feosol) mecobalamin (vitamin B12) 1,000 1,000 mcg PO DAILY 06/13/21 04/02/24 History mcg chewable tablet multivitamin 1 tab PO QAM 07/01/22 04/02/24 History baclofen 10 mg tablet 10 mg PO BID #180 tabs 08/29/22 04/02/24 Rx peg 400-propylene glycol 0.4 %-0.3 1 drp ophthalmic (eye) DAILY PRN 02/20/23 04/02/24 History % eye drops (Systane (propylene Dry Eyes glycol)) ascorbic acid (vitamin C) 1,000 mg 1 g PO DAILY 04/04/23 04/02/24 History tablet (Vitamin C) citalopram 20 mg tablet 20 mg PO QPM #90 tabs 05/26/23 04/02/24 Rx omeprazole 40 mg capsule,delayed 40 mg PO QAM #90 caps 05/26/23 04/02/24 Rx release amlodipine 5 mg tablet 5 mg PO QAM #90 tabs 07/03/23 04/02/24 Rx fluocinonide 0.05 % topical cream 1 applic topical DAILY PRN 08/13/23 04/02/24 Rx PSORIASIS #120 grams allopurinol 100 mg tablet 100 mg PO QAM #90 tabs 10/13/23 04/02/24 Rx docusate sodium 100 mg capsule 100 mg PO BID #60 caps 10/13/23 04/02/24 Rx lisinopril 20 mg tablet 20 mg PO QAM #90 tabs 10/13/23 04/02/24 Rx trazodone 100 mg tablet 100 - 200 mg (1 - 2 x 100 mg) PO 10/13/23 04/02/24 Rx QPM #180 tabs triamcinolone acetonide 0.1 % 1 applic topical DAILY PRN Rash 10/16/23 04/02/24 Rx topical cream #80 grams tamsulosin 0.4 mg capsule 0.4 mg PO QPM PRN Bph #90 caps 02/09/24 04/02/24 Rx ropinirole 1 mg tablet 1 - 4 mg PO DIRECTED PRN 04/02/24 04/02/24 History restless leg(s) Past Med/Surg History Problem List (Updated 04/02/24 @ 16:37 by Colt Wagner MD) Chronic GERD (Acute) Chest pain (Acute) Episode of altered consciousness (Acute) Epigastric abdominal pain (Acute) Prediabetes History of falling Lesion of left [place] kidney 1.2cm lesion per CT 05/28/23 Left lower quadrant abdominal pain History of surgery RT FOOT FRACTURE, S/P REPAIR Sensorineural hearing loss of both ears (Chronic) Restless legs syndrome (Chronic) Psoriasis (Chronic) Macular degeneration (Acute) Lichen planus (Acute) Laryngopharyngeal reflux (Acute) Internal hemorrhoids (Acute) Hypertension (Acute) Gout (Acute) Esophageal dyskinesia (Acute) Dyslipidemia (Acute) Diverticulosis (Acute) Disc degeneration, lumbar (Acute) Depression (Chronic) Chronic kidney disease (CKD), stage III (moderate) (Acute) Benign prostatic hyperplasia with urinary obstruction (Acute) Anemia (Acute) Vitamin D deficiency (Chronic) S/P total knee arthroplasty Impacted cerumen of both ears Rotator cuff tear, right CMC arthritis Erectile dysfunction H/O arthroscopy of shoulder Left Encounter for pre-operative examination History of colon polyps Cerumen impaction Tendinitis of right rotator cuff Olecranon bursitis of right elbow Erectile dysfunction Rotator cuff arthropathy of left shoulder Ganglion cyst Status post reverse total replacement of left shoulder (~07/2022) Chronic anemia History of repair of rotator cuff RIGHT, DISTAL CLAVICLE EXCISION Hypertension (Chronic) Restless leg syndrome Chronic back pain Osteoarthritis Degenerative disc disease BPH (benign prostatic hyperplasia) GERD (gastroesophageal reflux disease) Controlled Diverticulitis Hx History of colonoscopy History of carpal tunnel release R/L History of surgery HX OF LEFT ANKLE FRACTURE History of cataract extraction with lens replacement R/L History of arthroscopy of left shoulder + RCR Chronic kidney disease, stage III (moderate) Baseline creatinine 1.6-1.8 per chart review Follows with [facility] nephro Medical History Psoriasis Cardiac murmur no cardio History of COVID-19 Dx 12/2021, symptoms at time: cough, SOB, weakness, loss of appetite, fatigue > resolved Hyperlipidemia Hearing deficit Macular degeneration of both eyes Depression Gout Surgical History History of left shoulder replacement Fall 2021 History of esophagogastroduodenoscopy (EGD) S/P epidural steroid injection History of open reduction and internal fixation (ORIF) procedure Left foot History of total left knee replacement History of arthroscopic knee surgery Left knee arthroscopy (12/17/18): LMA#4 at [facility] Family History Other No family history of adverse response to anesthesia Denies family history of Colon cancer Ovarian cancer Prostate cancer Myocardial infarction Breast cancer Social History Smoking Status: Former smoker Tobacco Type: Cigarettes Age Started Using Tobacco: 16; Age Quit Using Tobacco: 35; packs per day: 1; Second Hand Exposure: No; Do You Dip or Chew Tobacco: No; Hx Alcohol Use: No Hx Substance Use: No Preferred Language: Wolof Communication Ability: Effective Visual Impairment: No Limitations Hearing Ability: Use of Hearing Aid Police Aide Required: No Beliefs That Will Affect Care: None marital status: / marital status details: passed on March of 2022 Current Living Situation: Alone Current Living Situation Comment: daughter helps current occupational status: retired current occupation: retired from working at [employer] Ident Safe at Home: Yes Childhood Exposure to Second-Hand Smoke: Yes Diet: regular caffeine: No Dental Care, Regularly: No Physical Activity Frequency: Other Physical Activity Frequency Comment: active in the summer months Seatbelt Use: always Sunscreen Use: No Assistive Devices: Denture - Upper, Denture - Lower, Glasses and Hearing Aid - Bilateral Review of Systems Review of Systems: All systems reviewed & are unremarkable except as noted in HPI & below Physical Exam Physical Exam: head atraumatic neck supple, no JVD chest CTA b/l Heart S1S2 regular, no murmurs, gallops abdomen epigastric tenderness extremities no clubbing, no cyanosis neuro alert, awake, oriented times 3 Results & Data Results & Data Vital Signs (Past 12 Hours) Vital Signs Temp Pulse Pulse Resp BP BP Pulse Ox 04/02/24 15:36 70 04/02/24 14:25 59 L 19 100 04/02/24 14:25 57 L 15 158/90 H 100 04/02/24 14:25 99 04/02/24 11:53 36.3 C L 66 18 157/74 H 99 O2 Del Method O2 Flow Rate 04/02/24 15:36 04/02/24 14:25 Room Air 04/02/24 14:25 Room Air 04/02/24 14:25 Room Air 99 04/02/24 11:53 Room Air Laboratory Results Abnormal lab results 04/02/24 04/02/24 Range/Units 12:05 14:59 RBC 4.68 L (4.70-6.10) M/uL Hgb 13.6 L (14.0-18.0) g/dl Hct 41.2 L (42.0-52.0) % Lymph # (Auto) 1.02 L (1.20-3.40) K/uL Creatinine 1.64 H (0.6-1.4) mg/dl Glucose 132 H (70-99(Fasting)) mg/dl POC Glucose 115 H (70-99) mg/dl Diagnostic Findings Chest X-Ray 04/02/24 11:59 XR chest 1V portable CLINICAL HISTORY: Chest pain, nonspecific COMPARISON STUDY: Chest radiograph July 03, 2022. Chest CT July 12, 2022. FINDINGS: Left shoulder arthroplasty is incidentally noted. Lung volumes are normal. There is no consolidation. Linear left basilar density represents atelectasis. There is no pneumothorax or pleural effusion. Cardiac size is normal. Mediastinal contours are normal. There is no evidence for pulmonary edema. IMPRESSION: No acute cardiopulmonary findings. ACT 112: Negative or not required by law. Electronically signed by: Manish Aguilar M.D. 04/02/2024 3:02 PM Abdomen/Pelvis CT 04/02/24 13:30 CT abd pelvis IV con only CLINICAL HISTORY: epigastric pain TECHNIQUE: Helical axial images of the abdomen and pelvis were obtained and displayed. Automated dose lowering techniques and/or adjustment according to patient size were utilized for this exam. This exam was performed with intravenous contrast. COMPARISON: Comparison is made to CT abdomen pelvis 05/28/2023 FINDINGS: Lower chest: For findings above the diaphragm, please see CT chest performed same day. Liver: Unremarkable. No focal lesions are seen. Gallbladder and biliary tree: No calcified gallstones. Normal caliber wall. No intra- or extrahepatic biliary ductal dilation. Pancreas: Unremarkable, no focal lesions. Spleen: Splenule is incidentally noted. Adrenals: Unremarkable. Kidneys and ureters: Renal cysts are seen. There are also bilateral sub centimeter hypodensities which are too small to characterize but likely represent cysts. Bladder: Unremarkable. Reproductive organs: Unremarkable. Bowel: Diverticulosis is seen without diverticulitis. The appendix is normal. Lymph nodes Retroperitoneal: Unremarkable. Pelvic: Unremarkable. Mesenteric: Unremarkable. Peritoneum: Normal. Vessels: Atherosclerotic calcifications are seen. Abdominal wall: Left fat containing inguinal hernia. Bones: Old healed rib fractures are seen. Degenerative changes are seen in the spine. IMPRESSION: 1. No acute abnormalities. 2. Diverticulosis without diverticulitis. 3. Bilateral renal cystic lesions with additional hypodensities which are too small to characterize. 4. Additional findings as above. ACT 112: Negative or not required by law. Electronically signed by: Hira Jin M.D. 04/02/2024 3:38 PM Chest CTA 04/02/24 15:01 CT angio chest dissec wo/w con CLINICAL HISTORY: chest pain TECHNIQUE: Multidetector row helical CT of the chest was performed before and after injection of IV contrast. Coronal, sagittal, and MIP reformations were obtained. Automated dose lowering techniques and/or adjustment according to patient size were utilized for this exam. Comparison: Comparison is made to CT chest 07/12/2022 FINDINGS: Lungs and pleura: Atelectasis versus scarring is seen in the dependent portions of the lungs. No suspicious pulmonary nodules. Heart and pericardium: Cardiomegaly is seen with biatrial enlargement. Mitral annular calcifications are seen. Vessels: No aortic dissection or intramural hematoma is seen. Moderate atherosclerotic disease is seen. Mediastinum and frantz: Subcentimeter lymph nodes are seen. Chest wall and lower neck: Unremarkable. Abdomen: For findings below the diaphragm, please refer to CT of the abdomen dated the same. Bones: Degenerative changes in the thoracic spine. Left shoulder arthroplasty is seen. IMPRESSION: No acute abnormality and in particular no evidence of acute aortic injury. ACT 112: Negative or not required by law. Electronically signed by: Hira Jin M.D. 04/02/2024 3:[address] 04/02/24 15:01 CT OF THE HEAD WITHOUT CONTRAST CLINICAL HISTORY: Altered mental status. COMPARISON STUDY: Head CT June 04, 2017. CT DOSE: 4119.93 mGy.cm TECHNIQUE: Helical axial images of the head were obtained without IV contrast. Automated exposure control was utilized for the study. A dose lowering technique was utilized adhering to the principles of ALARA. FINDINGS: No acute intracranial hemorrhage, midline shift or mass effect is present. White matter hypodensities favor small vessel disease. The ventricular system is unremarkable. The basal cisterns are patent. No extra-axial collections are present. There are no findings to suggest acute dural sinus thrombosis or acute territorial infarct. No significant calvarial abnormalities are present. Small amount of fluid within the left mastoid air cells. IMPRESSION: No acute intracranial findings. ACT 112: Negative or not required by law. Electronically signed by: Manish Aguilar M.D. 04/02/2024 3:35 PM PG Care Time/CCT Total # of Minutes Spent Total Time Spent with Patient: Total time spent is greater than 50% in coordination of care (as documented) at patient's floor/unit and/or counseling patient: Coding Level of Care Code 91975 INT INP/OBS CARE 3/75MIN Diagnoses Epigastric abdominal pain R10.13 Episode of altered consciousness R40.4 Chronic GERD K21.9 Restless legs syndrome G25.81 Hypertension I10 Chronic kidney disease (CKD), stage III (moderate) N18.3 Anemia D64.9
[2024-04-02] MEDS ORDERED: traZODone HCL 100 MG TAB PO SCH (21:00)
[2024-04-02] MEDS: PANTOprazole 40 MG in SYRINGE 0 ML IV SCH (21:55)
[2024-04-02] MEDS: HEPARIN SOD 5,000 UNIT/0.5 ML VIAL SQ SCH (21:55)
[2024-04-02] MEDS: PSYLLIUM or GUAR GUM FIBER 4GM PACKET PO SCH (21:55)
[2024-04-02] MEDS: BACLOFEN 10 MG TAB PO SCH (21:56)
[2024-04-02] MEDS: DOCUSATE SODIUM 100 MG CAP PO SCH (21:56)
[2024-04-02] MEDS: CITALOPRAM 20 MG TAB PO SCH (21:56)
[2024-04-02] MEDS: CETIRIZINE HCL 10 MG TABLET PO SCH (21:57)
[2024-04-02] MEDS: traZODone HCL 100 MG TAB PO SCH (21:57)
[2024-04-02] MEDS: POLYETHYLENE (MIRALAX) 17 GM PACK PO SCH (21:58)
[2024-04-02] MEDS: rOPINIRole HCL 1 MG TABLET PO PRN (21:58)
[2024-04-03] MEDS: lisinopril 20 MG TAB PO SCH (08:24)
[2024-04-03] MEDS: FERROUS SULFATE 325 MG TAB PO SCH (08:25)
[2024-04-03] MEDS: CEROVITE ADV FORMULA TAB PO SCH (08:25)
[2024-04-03] MEDS: allopurinoL 100 MG TAB PO SCH (08:26)
[2024-04-03] MEDS: amLODIPine BESYLATE 5 MG TAB PO SCH (08:26)
[2024-04-03] MEDS: CYANOCOBALAMIN (B-12) 500 MCG TABLET PO SCH (08:26)
--- NOTE | 2024-04-04 07:56 | Discharge Summary ---
Date of Service April 03, 2024 Admission HPI Per Admitting Provider 78 yo male with h/o CKD st 3, HTN, severe RLS, on Requip, GERD, presents with severe epigastric pain since yesterday, CT abdomen, pelvis in ER no acute abnormalities, CTA chest no dissection, trop not done, EKG incomplete RBBB, he had an episode of restless leg movement in ER, looked like seizure activity, he did not have his Requip since this morning, he is taking PPI, denies black stools or bloody stools, no weight loss, had EGD, colonoscopy before, denies any other symptoms, usually eats one meal a day around 6-7 pm. Discharge Data Allergies Allergy/AdvReac Type Severity Reaction Status Date / Time ketorolac [From Toradol] AdvReac Severe altered Verified 04/05/24 09:47 mental status Consultations 04/02/24 16:17 ED Decision to Admit Stat Ordered Studies 04/02/24 13:30 CT Abd and Pelvis [CT abd pelvis IV con only] Stat 04/02/24 15:01 CT angio chest dissec wo/w con Stat CT head/brain wo con Stat Hospital Course (1) Epigastric abdominal pain: related to GERD ?, PPI obtain trop r/o ACS (2) Episode of altered consciousness: probably episode of RLS, doubt seizures, patient remembers all details continue Requip obtain iron study (3) Chronic GERD: continue PPI (4) Restless legs syndrome: continue Requip, Baclofen (5) Hypertension: stable, continue home meds (6) Chronic kidney disease (CKD), stage III (moderate): at baseline monitor BMP (7) Anemia: stable anemia of chronic kidney disease obtain iron study Discharge Plan Discharge Items Patient Disposition: Home - Self-Care Reason For Visit: EPIGASTRIC PAIN Discharge Diagnosis: Epigastric abdominal pain Activity: Resume your previous activity Non-emergency contact: Primary Care Provider Call non-emergency contact if: you have any medication questions, your symptoms worsen and your pain is worsening Follow-up/Referrals: Vaishnavi Cruz CRNP [Primary Care Provider] - 04/06/24 2:30 pm Diet: Heart Healthy Addtl Attending Provider Instructions: Mr. Jay, you were in the hospital for observation to monitor your abdominal pain. Please see the instructions below. You had a work-up while in the hospital to exclude other conditions. Your CT scan of your chest, abdomen, and pelvis was negative. Your electrocardiogram did not reveal any changes to your heart rhythm. We also checked some labs, including cardiac enzymes, that were within normal limits. -Continue on your omeprazole 40mg daily as previously prescribed. -Use Tums or Pepcid over the counter as needed for breakthrough symptoms. -Please continue on your Metamucil and Miralax daily for management of constipation. -We recommend that you follow up with a heel boom operator after discharge to be evaluated for an upper endoscopy. -Please follow up with your PCP within 1-2 weeks of discharge. For your chronic conditions: -Please continue on Ropinirole and Baclofen for your restless leg syndrome. -Please continue on amlodipine and lisinopril for management of your high blood pressure. Pending Studies at Discharge: No Stand-Alone Forms: My [facility] [place], Smoking Cessation Medications and DC Order Prescriptions: Continued PreserVision AREDS [id number] capsule 1 cap PO BID Metamucil 3.4 gram/5.4 gram powder 1 tbs PO HS fluticasone propionate 50 mcg/actuation spray,suspension 2 spray intranasal QAM PRN (Reason: sinus congestion) Qty: 15.8 6RF Rx Instructions: administer into each nostril baclofen 10 mg tablet 10 mg PO BID Qty: 180 3RF citalopram 20 mg tablet 20 mg PO QPM Qty: 90 3RF amlodipine 5 mg tablet 5 mg PO QAM Qty: 90 3RF allopurinol 100 mg tablet 100 mg PO QAM Qty: 90 3RF Rx Instructions: TAKE 1 TABLET BY MOUTH EVERY MORNING lisinopril 20 mg tablet 20 mg PO QAM Qty: 90 3RF docusate sodium 100 mg capsule 100 mg PO BID Qty: 60 11RF trazodone 100 mg tablet 100 - 200 mg PO QPM Qty: 180 3RF Rx Instructions: Take 1 to 2 Tablets By Mouth At Bedtime triamcinolone acetonide 0.1 % cream 1 applic topical DAILY PRN (Reason: Rash) Qty: 80 1RF Rx Instructions: apply to area on face PRN mecobalamin (vitamin B12) 1,000 mcg tablet,chewable 1,000 mcg PO DAILY ferrous sulfate [Feosol] 325 mg (65 mg iron) tablet 325 mg PO DAILY ketoconazole 2 % shampoo 1 applic topical DAILY PRN (Reason: SKIN ISSUES) cetirizine 10 mg tablet 10 mg PO QPM Systane (propylene glycol) 0.4-0.3 % drops 1 drp ophthalmic (eye) DAILY PRN (Reason: Dry Eyes) fluocinonide 0.05 % cream 1 applic topical DAILY PRN (Reason: PSORIASIS) Qty: 120 3RF Rx Instructions: apply to rash on body tamsulosin 0.4 mg capsule 0.4 mg PO QPM PRN (Reason: Bph) Qty: 90 3RF multivitamin Tablet 1 tab PO QAM ascorbic acid (vitamin C) [Vitamin C] 1,000 mg Tablet 1 g PO DAILY ropinirole 1 mg tablet 1 - 4 mg PO DIRECTED PRN (Reason: restless leg(s)) Rx Instructions: 1 - 4 tablets PO daily PRN; No Action omeprazole 40 mg capsule,delayed release(DR/EC) 40 mg PO BID Qty: 90 3RF polyethylene glycol 3350 [Miralax] 17 gram powder in packet 17 g PO HS Rx Instructions: Takes Daily Discharge Orders: Discharge Order (Routine); Ordered 04/03/24 Ordered By: Yoni Gill Admission Data Admit Date/Time: 04/02/24 16:50 Attending Provider: Yoni Gill Admit Provider: Genia London Primary Care Provider: Vaishnavi Cruz Other Providers: Genia London Other Interventions: Discharge Summary Assessment (RN) Last Done: 04/03/24 15:20 Coding Diagnoses Epigastric abdominal pain R10.13 Episode of altered consciousness R40.4 Chronic GERD K21.9 Restless legs syndrome G25.81 Hypertension I10 Chronic kidney disease (CKD), stage III (moderate) N18.3 Anemia D64.9
--- NOTE | 2024-04-06 05:58 | Electrocardiogram Report ---
Test Reason : Blood Pressure : / mmHG Vent. Rate : 077 BPM Atrial Rate : 000 BPM P-R Int : 000 ms QRS Dur : 090 ms QT Int : 408 ms P-R-T Axes : 000 -11 053 degrees QTc Int : 462 ms Poor data quality, interpretation may be adversely affected Normal sinus rhythm Low voltage QRS When compared with ECG of 02-APR-2024 12:03, Nonspecific T wave abnormality now evident in Anterior leads Confirmed by Jeff Kulkarni ([id number]) on 04/06/2024 5:57:56 AM Referred By: REFERRED SELF Confirmed By:Jeff Kulkarni
== END 2024-04-03 15:56 | disposition home or self-care (01) ==
LOC: ED 11:43 → EDINP 11:43 → SUATTDRO 16:50 → 2N 19:54